=== PATIENT | male | born 1950 | race Two or more races ===

== ENCOUNTER 2017-12-31 10:57 | Inpatient (IN) | payer MEDICARE, MEDICAID ==
[2017-12-31 11:29] LABS: % EOSINOPHILS 1.5 % (0.0-5.0); % LYMPHOCYTES 19.2 % (20.0-50.0); % MONOCYTES 12.6 % (2.0-10.0); % NEUTROPHILS 66.7 % (40.0-80.0); EOSINOPHILE ABSOLUTE 0.1 Th/cmm (0.1-0.4); HEMATOCRIT 41.6 % (41.0-60); HEMOGLOBIN 14.1 gm/dL (12-16); LYMPHOCYTE ABSOLUTE 1.1 Th/cmm (1.5-3.0); MEAN CELL VOLUME 88.9 fl (80-99); MEAN CORPUSCULAR HEMOGLOBIN 30.1 pg (27.0-31.0); MEAN CORPUSCULAR HGB CONC 33.9 pg (28.0-36.0); MEAN PLATELET VOLUME 8.7 fl; MONOCYTE ABSOLUTE 0.7 Th/cmm (0.3-1.0); PLATELET COUNT 185 Th/cmm (150-400); RED BLOOD COUNT 4.68 Mil/cmm (3.80-5.80); RED CELL DISTRIBUTION WIDTH 12.5 % (11.5-20.0); WHITE BLOOD COUNT 5.9 Th/cmm (4.8-10.8)
--- NOTE | 2017-12-31 11:29 | Diagnostic Imaging Report ---
CHEST X-RAY: AP view INDICATION: pain COMPARISON: None FINDINGS: Mild chronic lung changes are noted. There is no focal consolidation or pleural effusions The heart is normal in size. The osseous structures demonstrate no acute abnormalities. IMPRESSION: Mild chronic lung changes. No focal consolidation identified.
--- NOTE | 2017-12-31 11:31 | ED Physician Chart ---
ED Chief Complaint/HPI - Patient Information Date Seen:: 12/31/17 Time Seen:: 11:00 Chief Complaint:: Syncope History of Present Illness:: onset x 2 days of multiple syncope and NS episodes resulting in multiple falls; no report of trauma, H/As, S/T, neck pain, C/P, SOB, cough, abd. pain, A/N/V/D/C , fever, chills, or urinary s/s Allergies:: Allergies Allergy/AdvReac Type Severity Reaction Status Date / Time No Known Allergies Allergy Verified 12/31/17 11:06 Vitals:: Vital Signs - 8 hr 12/31/17 11:06 Temp 97.5 F HR 54 RR 16 BP 97/58 O2 Sat % 99 Historian:: Patient, EMS Review:: Nurse's Note Reviewed, Old Chart Reviewed, EMS run form Reviewed ED Review of Systems - Review of Systems General/Constitutional: No fever, No chills, No weight loss, Weakness, No diaphoresis, No edema, No loss of appetite Skin: No skin lesions, No rash, No bruising Head: No headache, No light-headedness Eyes: No loss of vision, No pain, No diplopia ENT: No earache, No nasal drainage, No sore throat, No tinnitus Neck: No neck pain, No swelling, No thyromegaly, No stiffness, No mass noted Cardio Vascular: No chest pain, No palpitations, No PND, No orthopnea, No edema Pulmonary: No SOB, No cough, No sputum, No wheezing GI: No nausea, No vomiting, No diarrhea, No pain, No melena, No hematochezia, No constipation, No hematemesis G/U: No dysuria, No frequency, No hematuria, No nacturia Musculoskeletal: No bone or joint pain, No back pain, No muscle pain Endocrine: No polyuria, No polydipsia Psychiatric: Prior psych history, No depression, Anxiety, No suicidal ideation, No homicidal ideation, No auditory hallucination, No visual hallucination Hematopoietic: No bruising, No lymphadenopathy Allergic/Immuno: No urticaria, No angioedema Neurological: Syncope, No focal symptoms, Weakness, No paresthesia, No headache , No seizure, Dizziness, Confusion, Vertigo ED Past Medical History - Past Medical History Obtainable: Yes Past Medical History: HTN, Dyslipidemia, Dementia, Other (Parkinson's Disease) Family History: HTN Social History: Non Smoker, No Alcohol, No Drug Use, Surgical History: None Psychiatricy History: Dementia Medication: Reviewed Family Medical History - Family Member Mother History Unknown: Yes ED Physical Exam - Physical Examination General/Constitutional: Awake, Well-developed, well-nourished, Alert, No distress, GCS 15, Non-toxic appearing, Ambulatory Head: Atraumatic Eyes: Lids, conjuctiva normal, PERRL, EOMI Skin: Nl inspection, No rash, No skin lesions, No ecchymosis, Well hydrated, No lymphadenopathy ENMT: External ears, nose nl, TM canals nl, Nasal exam nl, Lips, teeth, gums nl , Oropharynx nl, Tonsils nl Neck: Nontender, Full ROM w/o pain, No JVD, No nuchal rigidity, No bruit, No mass, No stridor Respiratory: Nl effort/Exclusion, Clear to Auscultation, No Wheeze/Rhonchi/Rales Cardio Vascular: RRR, No murmur, gallop, rubs, NL S1 S2, Carotid/Femoral/Distal pulses equal bilaterally GI: No tenderness/rebounding/guarding, No organomegaly, No hernia, Normal BS's, Nondistended, No mass/bruits, No McBurney tenderness : No CVA tenderness Extremities: No tenderness or effusion, Full ROM, normal strength in all extremities, No edema, Normal digits & nails Neuro/Psych: Alert/oriented, DTR's symmetric, Normal sensory exam, Normal motor strength, Judgement/insight normal, Mood normal, Normal gait, No focal deficits Misc: Normal back, No paraspinal tenderness ED Labs/Radiology/EKG Results - Lab Results Comments:: unremarkable - Radiology Results Comments:: NAD - EKG Interpretations EKG Time:: 11:44 Rate & Rhythm: 50; SB Comments:: non-specific st-t changes ED Septic Shock - . Is Septic Shock (SBP<90, OR Lactate>4 mmol\L) present?: No - <6hrs of presentation: Vital Signs: Vital Signs - 8 hr 12/31/17 11:06 Temp 97.5 F HR 54 RR 16 BP 97/58 O2 Sat % 99 ED Reassessment (Disposition) - Reassessment Reassessment Condition:: Improved - Diagnosis Diagnosis:: Hyponatremia; Syncope; Falls; Cardiac Arrythmias; TIA; Bradycardia - Aftercare/Follow up Instructions Aftercare/Follow-Up Instructions:: Counseled pt regarding lab results/diagnosis & need follow up, Counseled pt & family regarding lab results/diagnosis & need follow up - Patient Disposition Discharge/Transfer:: Acute Care w/in this hosp Accepting Physician:: Dr. Cox Time Called:: 1300 Time Responded:: 13:00 Admitted to:: Telemetry Spoke to:: Dr. Cox Admitting Medical Physician:: Dr. Cox Condition at Disposition:: Stable, Improved
[2017-12-31 11:40] LABS: PROTHROMBIN TIME (TEST) 10.4 SECONDS (9.5-11.5)
[2017-12-31 11:44] LABS: ALB/GLOB RATIO 1.2 (1.0-1.8); ALBUMIN 4.1 gm/dL (4.2-5.5); ALKALINE PHOSPHATASE 54 U/L (34-104); ANION GAP 7.1 (7.0-16.0); BILIRUBIN,TOTAL 0.4 mg/dL (0.3-1.0); BUN - UREA NITROGEN 15 mg/dL (7-25); CALCIUM SERUM 9.6 mg/dL (8.6-10.3); CARBON DIOXIDE 28.7 mEq/L (21.0-31.0); CHLORIDE 102 mEq/L (98-107); CHOLESTEROL 102 mg/dL (<200); CREATININE - SERUM 0.9 mg/dL (0.7-1.3); GFR AFRICAN-AMERICAN > 60.0 ml/min (>90); GFR NON AFRICAN-AMERICAN > 60.0 ml/min; GLUCOSE 78 mg/dL (70-105); HDL -HIGH DENSITY LIPOPROTEIN 35 mg/dL (23-92); POTASSIUM SERUM 3.8 mEq/L (3.5-5.1); SGOT 15 U/L (13-39); SGPT/ALT 4 U/L (7-52); SODIUM SERUM 134 mEq/L (136-145); TOTAL PROTEIN,SERUM 7.5 gm/dL (6.0-8.3); TRIGLYCERIDES 68 mg/dL (<150)
--- NOTE | 2017-12-31 12:17 | Diagnostic Imaging Report ---
Head CT without intravenous contrast Indication: Syncope Comparison: None Technique: Axial images were obtained from the vertex to the skull base without IV contrast. Coronal reconstructions were made. Total DLP: 665, CTDI34 FINDINGS: Images of the brain obtained without contrast demonstrate no acute hemorrhage. No mass lesions identified. The ventricles and basal cisterns are patent. The carmona-white matter differentiation is preserved. There is no mass effect or midline shift. Atrophy is noted. No skull fractures identified. No soft tissue swelling. The paranasal sinuses are clear. IMPRESSION: No acute intracranial abnormality. Atrophy.
[2017-12-31] MEDS ORDERED: Sodium Chloride 0.9% 1,000 ML IV SCH (15:00)
[2017-12-31] MEDS: Sodium Chloride 0.9% 1,000 ML IV SCH (16:33)
[2017-12-31 19:33] VITALS: BP 124/64
--- NOTE | 2017-12-31 22:30 | History & Physical ---
ADMIT DATE: 12/31/2017 HISTORY OF PRESENT ILLNESS: This is a patient admitted from the Emergency Room, essentially was having a history of recurrent falls, history of recurrent syncope and the patient reported no shortness of breath, no chest pain, no , was admitted for complete neuro and cardiac evaluation. The patient had no fever, no chills, no headache, no shortness of breath, no bruising. History of hypertension, hyperlipidemia and dementia and history of Parkinson disease. PHYSICAL EXAMINATION: GENERAL: Awake, alert, not in acute distress. VITAL SIGNS: Stable. HEAD: Normal. ENT: Normal. NECK: Supple, nontender. LUNGS: Clear. CARDIOVASCULAR SYSTEM: S1, S2 heard. ABDOMEN: Soft. Bowel sounds are heard. CENTRAL NERVOUS SYSTEM: Grossly normal. LABORATORY DATA: EKG showed no acute ST-T changes and the patient's sodium was low, hyponatremia was noted. DIAGNOSES: Hyponatremia, syncopal episode, cardiac arrhythmia, rule out transient ischemic attack, rule out . PLAN: The patient is being admitted. I will have a neuro as well as cardiac workup done. We will also call Dr. Ruggiero for Neurology and Dr. Zeyad Marte for Cardiology and I will follow the patient. JOB# [id number]
--- NOTE | 2018-01-01 02:29 | Consultation ---
DATE OF CONSULTATION: 12/31/2017 NEUROLOGY [place] HISTORY OF PRESENT ILLNESS: The patient is 67-year-old. The patient is admitted with difficulty with walking. Complains of pain in the legs and weakness in the legs. Difficulty standing. Multiple falls. The patient had diagnosis of [id number] Parkinson. The patient with lot of stiffness. The patient is on Sinemet ____ seems like he is taking 50/200 mg twice a day and then 25/100 mg four times a day. The patient says that he is having more and more difficulty with ambulation. PAST MEDICAL HISTORY: Hypertension, hyperlipidemia, dementia, and Parkinson's. FAMILY HISTORY: Hypertension. MEDICATIONS: As per ____. SOCIAL HISTORY: He does not smoke or drink. REVIEW OF SYSTEMS: As above, otherwise 12-point negative. PHYSICAL EXAMINATION: VITAL SIGNS: Temperature 98.2, blood pressure 105/60, and pulse is 58. NECK: Supple, no bruits. HEART: Sounds S1 and S2. LUNGS: Clear. NEUROLOGIC: The patient is awake. The patient will answer questions. Speech is slightly slow, mildly dysarthric, but I am able to understand it completely. CRANIAL: Pupils react to light. Full eye movement, no nystagmus. The patient has some limitation of movement of the eyes ____ Face is immobile. MOTOR: The patient has tremor resting, more on the right than left. The patient has cogwheel rigidity. Upper extremities, able to lift about 3+ to 4. Lower extremities, increased tone with a combination of rigidity and also some spasticity. Limited movement, difficulty lifting them up. Reflexes about -1 in the upper extremities and essentially absent at the knees and ankles. INVESTIGATIONS: CT scan of the head is negative. ASSESSMENT AND PLAN: 1. Ataxia. 2. Falls. 3. Parkinson. 4. Dementia. 5. Hypertension. 6. Dyslipidemia. 7. We will restart the patient's Parkinson medication. Workup with a possible CT scan or MRI of the cervical spine in view of the falls to make sure no spinal injury. 8. Lab studies. JOB# [id number]
[2018-01-01] MEDS: Hydrocodone/APAP 5mg/325mg Tab PO PRN ×2 (04:50→22:26)
[2018-01-01 06:18] LABS: % BASOPHILS 0.1 % (0.0-2.0); % EOSINOPHILS 1.5 % (0.0-5.0); % LYMPHOCYTES 21.4 % (20.0-50.0); % MONOCYTES 11.7 % (2.0-10.0); % NEUTROPHILS 65.3 % (40.0-80.0); EOSINOPHILE ABSOLUTE 0.1 Th/cmm (0.1-0.4); HEMATOCRIT 41.6 % (41.0-60); HEMOGLOBIN 14.3 gm/dL (12-16); MEAN CELL VOLUME 86.9 fl (80-99); MEAN CORPUSCULAR HEMOGLOBIN 29.9 pg (27.0-31.0); MEAN CORPUSCULAR HGB CONC 34.4 pg (28.0-36.0); MEAN PLATELET VOLUME 8.7 fl; MONOCYTE ABSOLUTE 0.6 Th/cmm (0.3-1.0); NEUTROPHILE ABSOLUTE 3.2 Th/cmm (1.8-8.0); PLATELET COUNT 190 Th/cmm (150-400); RED BLOOD COUNT 4.79 Mil/cmm (3.80-5.80); RED CELL DISTRIBUTION WIDTH 12.7 % (11.5-20.0); WHITE BLOOD COUNT 4.9 Th/cmm (4.8-10.8)
[2018-01-01 06:31] LABS: ANION GAP 9.3 (7.0-16.0); BUN - UREA NITROGEN 16 mg/dL (7-25); CALCIUM SERUM 9.6 mg/dL (8.6-10.3); CHLORIDE 104 mEq/L (98-107); CREATININE - SERUM 0.9 mg/dL (0.7-1.3); GFR AFRICAN-AMERICAN > 60.0 ml/min (>90); GFR NON AFRICAN-AMERICAN > 60.0 ml/min; GLUCOSE 104 mg/dL (70-105); POTASSIUM SERUM 4.3 mEq/L (3.5-5.1); SODIUM SERUM 136 mEq/L (136-145)
[2018-01-01] MEDS ORDERED: Atenolol 100mg Tab PO SCH (09:00)
--- NOTE | 2018-01-01 10:53 | Diagnostic Imaging Report ---
Carotid ultrasound HISTORY: Weakness COMPARISON: None Technique: Longitudinal and transverse sonographic sector images of the carotid arteries were obtained with doppler analysis. FINDINGS: Exam of the right side demonstrates intimal thickening and mild to moderate atherosclerotic vascular disease. No evidence of elevated velocities. Antegrade vertebral artery flow is demonstrated. Exam of the left side demonstrates intimal thickening and mild atherosclerotic vascular disease. No evidence of elevated velocities. Antegrade vertebral artery flow is demonstrated. The velocity ratios are within normal limits. IMPRESSION: Mild to moderate atherosclerotic vascular disease, right greater than left. No evidence of hemodynamically significant stenosis.
[2018-01-01] MEDS: Carbidopa/Levodopa 50/200 mg 1 TER TER PO SCH ×4 (11:40→20:53)
--- NOTE | 2018-01-01 19:01 | Internal Medicine Prog Note ---
Internal Medicine Objective - Results Result Diagrams: 01/01/18 05:45 01/01/18 05:45 Recent Labs: Laboratory Last Values WBC 4.9 Th/cmm (4.8-10.8) 01/01/18 05:45 RBC 4.79 Mil/cmm (3.80-5.80) 01/01/18 05:45 Hgb 14.3 gm/dL (12-16) 01/01/18 05:45 Hct 41.6 % (41.0-60) 01/01/18 05:45 MCV 86.9 fl (80-99) 01/01/18 05:45 MCH 29.9 pg (27.0-31.0) 01/01/18 05:45 MCHC Differential 34.4 pg (28.0-36.0) 01/01/18 05:45 RDW 12.7 % (11.5-20.0) 01/01/18 05:45 Plt Count 190 Th/cmm (150-400) 01/01/18 05:45 MPV 8.7 fl 01/01/18 05:45 Neutrophils % 65.3 % (40.0-80.0) 01/01/18 05:45 Lymphocytes % 21.4 % (20.0-50.0) 01/01/18 05:45 Monocytes % 11.7 % (2.0-10.0) H 01/01/18 05:45 Eosinophils % 1.5 % (0.0-5.0) 01/01/18 05:45 Basophils % 0.1 % (0.0-2.0) 01/01/18 05:45 ESR 20 mm/hr (0-20) 01/01/18 05:45 PT 10.4 SECONDS (9.5-11.5) 12/31/17 11:22 INR 1.00 (0.5-1.4) 12/31/17 11:22 Sodium 136 mEq/L (136-145) 01/01/18 05:45 Potassium 4.3 mEq/L (3.5-5.1) 01/01/18 05:45 Chloride 104 mEq/L (98-107) 01/01/18 05:45 Carbon Dioxide 27.0 mEq/L (21.0-31.0) 01/01/18 05:45 Anion Gap 9.3 (7.0-16.0) 01/01/18 05:45 BUN 16 mg/dL (7-25) 01/01/18 05:45 Creatinine 0.9 mg/dL (0.7-1.3) 01/01/18 05:45 Est GFR ( Amer) > 60.0 ml/min (>90) 01/01/18 05:45 Est GFR (Non-Af Amer) > 60.0 ml/min 01/01/18 05:45 BUN/Creatinine Ratio 17.8 01/01/18 05:45 Glucose 104 mg/dL (70-105) 01/01/18 05:45 Calcium 9.6 mg/dL (8.6-10.3) 01/01/18 05:45 Total Bilirubin 0.4 mg/dL (0.3-1.0) 12/31/17 11:22 AST 15 U/L (13-39) 12/31/17 11:22 ALT 4 U/L (7-52) L 12/31/17 11:22 Alkaline Phosphatase 54 U/L (34-104) 12/31/17 11:22 Creatine Kinase 118 U/L (30-223) 12/31/17 11:22 Troponin I < 0.01 ng/mL (0.01-0.05) L 12/31/17 11:22 C-Reactive Protein < 0.2 mg/dL (0.0-0.9) 01/01/18 05:45 B-Natriuretic Peptide 80.6 pg/mL (5.0-100.0) 12/31/17 11:22 Total Protein 7.5 gm/dL (6.0-8.3) 12/31/17 11:22 Albumin 4.1 gm/dL (4.2-5.5) L 12/31/17 11:22 Globulin 3.4 gm/dL 12/31/17 11:22 Albumin/Globulin Ratio 1.2 (1.0-1.8) 12/31/17 11:22 Triglycerides 68 mg/dL (<150) 12/31/17 11:22 Cholesterol 102 mg/dL (<200) 12/31/17 11:22 LDL Cholesterol Direct 59 mg/dL (75-193) L 12/31/17 11:22 HDL Cholesterol 35 mg/dL (23-92) 12/31/17 11:22 TSH 3.23 uIU/ml (0.34-5.60) 01/01/18 05:45 - Physical Exam Vitals and I&O: Vital Signs Temp 97.9 F 01/01/18 17:00 Pulse 60 01/01/18 17:00 Resp 20 01/01/18 17:00 BP 102/55 01/01/18 17:00 Pulse Ox 99 01/01/18 17:00 Intake & Output 01/01/18 01/01/18 01/02/18 06:59 18:59 06:59 Intake Total 360 600 Balance 360 600 Weight (lbs) 63.412 kg 63.412 kg Intake: Oral 360 600 Other: # Voids 3 2 # Bowel Movements 0 Weight Source Bedscale Bedscale Active Medications: Current Medications Acetaminophen/Hydrocodone Bitart (Mccoll 5mg/325mg) 1 tab PO Q6H PRN PRN Reason: mild to moderate pain Stop: 03/01/18 22:38 Last Admin: 01/01/18 04:50 Dose: 1 tab Alprazolam (Xanax) 0.25 mg PO Q12HR PRN; Protocol PRN Reason: Anxiety Stop: 03/01/18 20:59 Last Admin: 12/31/17 20:30 Dose: 0.25 mg Amlodipine Besylate (Norvasc) 10 mg PO DAILY [facility] Stop: 03/02/18 08:59 Last Admin: 01/01/18 09:37 Dose: Not Given Atenolol (Tenormin) 100 mg PO DAILY [facility] Stop: 03/02/18 08:59 Last Admin: 01/01/18 09:38 Dose: Not Given Carbidopa/Levodopa (Sinemet 25mg-100 Mg) 1 tab PO QID [facility] Stop: 03/01/18 20:59 Last Admin: 01/01/18 16:47 Dose: 1 tab Carbidopa/Levodopa (Sinemet Cr 50mg-200mg) 1 ter PO BID@0730,1930 [facility] Stop: 03/02/18 19:29 Sodium Chloride (Nacl 0.9%) 1,000 mls @ 50 mls/hr IV .Q20H [facility] Stop: 03/01/18 16:14 Last Admin: 12/31/17 16:33 Dose: 50 mls/hr
[2018-01-01] MEDS: Sodium Chloride 0.9% 1,000 ML IV SCH (20:54)
--- NOTE | 2018-01-01 23:39 | Consultation ---
DATE OF CONSULTATION: 01/01/2018 REASON FOR CONSULTATION: Hyponatremia. HISTORY OF PRESENT ILLNESS: This is a 67-year-old male with past medical history of Parkinson disease, who came in because of multiple falls. A few days prior to admission, the patient developed positional dizziness/vertigo, tremors of right upper and lower extremities. This resulted in several episodes of falls. His condition deteriorated with worsening tremors of his right upper and lower extremities. He then proceeded to the Emergency Room. CT scan of the head revealed no acute disease. Carotid artery ultrasound showed no significant hemodynamic stenosis. His sodium level was initially 134. He was started on normal saline and sodium went up to 135. He had no nausea and vomiting, no diarrhea. He was not on any form of diuretic. PAST MEDICAL HISTORY: 1. Parkinson disease. 2. Essential hypertension. 3. Dyslipidemia. CURRENT MEDICATIONS: He is currently on alprazolam, amlodipine, atenolol, carbidopa/levodopa, hydrocodone/APAP. ALLERGIES: No known drug allergies. SOCIAL HISTORY: He denied any history of smoking; however, he did have a history of alcohol consumption, but quit 30 years ago. FAMILY HISTORY: Noncontributory to present illness. REVIEW OF SYSTEMS: CONSTITUTIONAL: He did complain of weakness, especially right side of his body. No fever or chills. Appetite had been fair. HEENT: He did have some dizziness along with vertigo. No headaches. Vision remains acceptable along with hearing acuity. GASTROINTESTINAL: No nausea and vomiting, abdominal pain or cramping, hematemesis, melena, hematochezia, no diarrhea. ENDOCRINE: No history of diabetes or thyroid abnormalities. He does have dyslipidemia. MUSCULOSKELETAL: Multiple joint arthralgias. GENITOURINARY: No history of kidney failure, can check hyponatremia, which is resolved. NEUROPSYCH: He has a history of Parkinson disease. He also has a tendency to have multiple falls. He complained of weakness involving the right side of his body. PHYSICAL EXAMINATION: GENERAL: The patient is awake, verbal at this point, no distress. VITAL SIGNS: His blood pressure is 102/55, pulse 60, temperature 97 degrees. SKIN: Good turgor, warm, no rash, no jaundice appreciated. HEENT: Head normocephalic, atraumatic. Eyes, extraocular muscles intact. Pupils equal, round, reactive to light and accommodates. Anicteric sclerae. Pale conjunctivae. Nose, midline nasal septum. Mouth, moist mucosa, adequate dentition. NECK: Supple, no adenopathy, no thyromegaly, no bruits. Trachea palpated in the midline. CHEST AND CVS: Bradycardic, S1, S2. No rub, murmur, no gallop appreciated. Point of maximal impulse, fifth intercostal space, left midclavicular line. No abdominal or femoral bruits appreciated. LUNGS: Equal expansion. No use of accessory muscles. No supraclavicular retractions. Decreased breath sounds but clear to auscultation without any wheeze. ABDOMEN: Flat, soft. Positive for bowel sounds. No bruits, either diastolic or systolic. RECTAL: Lax sphincter tone. GENITOURINARY: Normal appearing male genitalia. MUSCULOSKELETAL: No effusions present in his joints with adequate range of motion. EXTREMITIES: No evidence of any edema, cyanosis or clubbing with palpable femoral, but unable to fully appreciate popliteal and dorsalis pedis pulses. He has hyperpigmentation involving soles of both feet. NEUROLOGIC: The patient is awake, but due to some language problem, he was unable to follow my neuro commands, so I was unable to pursue further my neuro exam. He does have voluntary movements of all of his extremities without difficulty. LABORATORY DATA: Did reveal white count 4.9, hemoglobin 14.3, hematocrit 41.6, platelets 190, polys 65.3%. Sodium 136, potassium 4.3, chloride 104, bicarbonate 27, BUN 16, creatinine 0.9, glucose 104, calcium 9.6. IMPRESSION: 1. Hyponatremia, which has resolved with IV hydration of normal saline. 2. Multiple falls, possibly from orthostatic hypotension, bradycardia, worsening Parkinson's disease as well as effect of his medications and also benign paroxysmal positional vertigo. 3. Essential hypertension, which is now under good control. 4. Parkinson disease, which has been poorly controlled. 5. Dyslipidemia. PLAN: 1. Continue with IV hydration. 2. Urinalysis. 3. Urine spot sodium. 4. Serum osmolality and uric acid. 5. Discontinue amlodipine and metoprolol due to bradycardia. 6. Monitor blood pressure for orthostasis. Thank you Dr. Cox for this consult. We will follow the patient closely with you. JOB# [id number]
[2018-01-02] MEDS: Carbidopa/Levodopa 50/200 mg 1 TER TER PO SCH ×2 (07:29→20:47)
[2018-01-02] MEDS: Dexamethasone/Tobramycin Ophth Susp 2.5 mL Bottle EACH EYE SCH ×2 (09:21→16:13)
--- NOTE | 2018-01-02 09:23 | Diagnostic Imaging Report ---
CT scan cervical spine HISTORY: Pain Total DLP equals 486 CTDI equals 21.8 Axial sections were obtained through the cervical spine. Additional sagittal and coronal reformatted images are provided. The exam demonstrates degenerative changes with hypertrophic spur formation noted about the endplates of C4, C5, and to a greater degree C6-7. Narrowing of the C6-7 interspace. Spur formation results in a mild extradural indentation on the anterior spinal canal at C6-7. No acute abnormalities. No fractures. The margins of the cervical spinal cord cannot be well visualized. The prevertebral soft tissues appear normal. Atherosclerotic calcification seen in the carotid artery regions. IMPRESSION: 1. No acute abnormalities 2. Degenerative changes most pronounced at C6-7 3. Atherosclerotic vascular changes
[2018-01-02 14:21] LABS: URINE SOURCE MIDSTREAM
[2018-01-02 14:24] LABS: URINE BILIRUBIN NEGATIVE (NEGATIVE); URINE BLOOD NEGATIVE (NEGATIVE); URINE GLUCOSE (UA) NEGATIVE (NEGATIVE); URINE KETONE NEGATIVE (NEGATIVE); URINE LEUKOCYTE ESTERASE NEGATIVE (NEGATIVE); URINE NITRATE NEGATIVE (NEGATIVE); URINE PROTEIN NEGATIVE (NEGATIVE); URINE UROBILINOGEN 0.2 E.U./dL (0.2 - 1.0)
[2018-01-02 14:25] LABS: URINE CLARITY CLEAR (CLEAR); URINE COLOR YELLOW; URINE MICROSCOPIC INDICATED? NO
--- NOTE | 2018-01-02 14:29 | Diagnostic Imaging Report ---
MRI cervical spine HISTORY: Pain Multiple MRI sequences were obtained in the sagittal and axial planes. The C3-4 level demonstrates normal disc contour. No intradural abnormalities are seen. The exam of the C4-5 level demonstrates a moderate (3 mm) extradural density and corresponding indentation on the anterior subarachnoid space. The finding appears primarily related to hypertrophic spur formation. Disc protrusion may also be contributing. Minimal encroachment on the anterior margin of the cervical spinal cord. Hypertrophic degenerative bony changes result in neural foraminal encroachment on the left side. The C5-6 level demonstrates degenerative changes with spur formation about the vertebral endplates. There is a moderate (3 mm) extradural density and a corresponding indentation on the anterior subarachnoid space. The findings appear primarily related to spur formation. Disc protrusion may also be contributing. The C6-7 level demonstrates slight narrowing of the disc and interspace. Degenerative spur formation seen about the vertebral endplates. There is a moderate to large (4 to 5 mm) extradural density and corresponding indentation on the anterior subarachnoid space. The finding appears primarily related to hypertrophic spur formation. Disc protrusion also appears to be contributing. Bony changes result in bilateral neural foraminal encroachment. No intramedullary abnormality seen within the cervical spinal cord. The cerebellar tonsils are in a normal position. Bone marrow exhibits normal signal intensity with no focal lesions. IMPRESSION: 1. Multilevel extradural densities and indentations as described above. The findings appear primarily related to hypertrophic degenerative spur formation. Mild disc protrusions may also be contributing. Correlation with plain radiographs recommended.
--- NOTE | 2018-01-02 14:43 | General Progress Note ---
Subjective - Review of Systems Service Date: 01/02/18 Subjective: still w/ ataxia Objective - Results Result Diagrams: 01/01/18 05:45 01/01/18 05:45 Recent Labs: Laboratory Last Values WBC 4.9 Th/cmm (4.8-10.8) 01/01/18 05:45 RBC 4.79 Mil/cmm (3.80-5.80) 01/01/18 05:45 Hgb 14.3 gm/dL (12-16) 01/01/18 05:45 Hct 41.6 % (41.0-60) 01/01/18 05:45 MCV 86.9 fl (80-99) 01/01/18 05:45 MCH 29.9 pg (27.0-31.0) 01/01/18 05:45 MCHC Differential 34.4 pg (28.0-36.0) 01/01/18 05:45 RDW 12.7 % (11.5-20.0) 01/01/18 05:45 Plt Count 190 Th/cmm (150-400) 01/01/18 05:45 MPV 8.7 fl 01/01/18 05:45 Neutrophils % 65.3 % (40.0-80.0) 01/01/18 05:45 Lymphocytes % 21.4 % (20.0-50.0) 01/01/18 05:45 Monocytes % 11.7 % (2.0-10.0) H 01/01/18 05:45 Eosinophils % 1.5 % (0.0-5.0) 01/01/18 05:45 Basophils % 0.1 % (0.0-2.0) 01/01/18 05:45 ESR 20 mm/hr (0-20) 01/01/18 05:45 PT 10.4 SECONDS (9.5-11.5) 12/31/17 11:22 INR 1.00 (0.5-1.4) 12/31/17 11:22 Sodium 136 mEq/L (136-145) 01/01/18 05:45 Potassium 4.3 mEq/L (3.5-5.1) 01/01/18 05:45 Chloride 104 mEq/L (98-107) 01/01/18 05:45 Carbon Dioxide 27.0 mEq/L (21.0-31.0) 01/01/18 05:45 Anion Gap 9.3 (7.0-16.0) 01/01/18 05:45 BUN 16 mg/dL (7-25) 01/01/18 05:45 Creatinine 0.9 mg/dL (0.7-1.3) 01/01/18 05:45 Est GFR ( Amer) > 60.0 ml/min (>90) 01/01/18 05:45 Est GFR (Non-Af Amer) > 60.0 ml/min 01/01/18 05:45 BUN/Creatinine Ratio 17.8 01/01/18 05:45 Glucose 104 mg/dL (70-105) 01/01/18 05:45 Uric Acid 3.0 mg/dL (4.4-7.6) L 01/02/18 08:08 Calcium 9.6 mg/dL (8.6-10.3) 01/01/18 05:45 Total Bilirubin 0.4 mg/dL (0.3-1.0) 12/31/17 11:22 AST 15 U/L (13-39) 12/31/17 11:22 ALT 4 U/L (7-52) L 12/31/17 11:22 Alkaline Phosphatase 54 U/L (34-104) 12/31/17 11:22 Creatine Kinase 118 U/L (30-223) 12/31/17 11:22 Troponin I < 0.01 ng/mL (0.01-0.05) L 12/31/17 11:22 C-Reactive Protein < 0.2 mg/dL (0.0-0.9) 01/01/18 05:45 B-Natriuretic Peptide 80.6 pg/mL (5.0-100.0) 12/31/17 11:22 Total Protein 7.5 gm/dL (6.0-8.3) 12/31/17 11:22 Albumin 4.1 gm/dL (4.2-5.5) L 12/31/17 11:22 Globulin 3.4 gm/dL 12/31/17 11:22 Albumin/Globulin Ratio 1.2 (1.0-1.8) 12/31/17 11:22 Triglycerides 68 mg/dL (<150) 12/31/17 11:22 Cholesterol 102 mg/dL (<200) 12/31/17 11:22 LDL Cholesterol Direct 59 mg/dL (75-193) L 12/31/17 11:22 HDL Cholesterol 35 mg/dL (23-92) 12/31/17 11:22 TSH 3.23 uIU/ml (0.34-5.60) 01/01/18 05:45 Urine Color YELLOW 01/02/18 14:15 Urine Clarity CLEAR (CLEAR) 01/02/18 14:15 Urine pH 6.0 (4.6 - 8.0) 01/02/18 14:15 Ur Specific [place] 1.025 (1.005-1.030) 01/02/18 14:15 Urine Protein NEGATIVE mg/dL (NEGATIVE) 01/02/18 14:15 Urine Glucose (UA) NEGATIVE mg/dL (NEGATIVE) 01/02/18 14:15 Urine Ketones NEGATIVE mg/dL (NEGATIVE) 01/02/18 14:15 Urine Blood NEGATIVE (NEGATIVE) 01/02/18 14:15 Urine Nitrate NEGATIVE (NEGATIVE) 01/02/18 14:15 Urine Bilirubin NEGATIVE (NEGATIVE) 01/02/18 14:15 Urine Urobilinogen 0.2 E.U./dL (0.2 - 1.0) 01/02/18 14:15 Ur Leukocyte Esterase NEGATIVE (NEGATIVE) 01/02/18 14:15 - Physical Exam Vitals and I&O: Vital Signs Temp 97.5 F 01/02/18 11:59 Pulse 67 01/02/18 11:59 Resp 20 01/02/18 11:59 BP 118/66 01/02/18 11:59 Pulse Ox 99 01/02/18 11:59 Intake & Output 01/01/18 01/02/18 01/02/18 18:59 06:59 18:59 Intake Total 1600 Output Total 250 Balance 1600 -250 Weight (lbs) 63.412 kg 63.049 kg Intake: Intake, IV Amount 1000 Sodium Chloride 0.9% 1, 1000 000 ml @ 50 mls/hr IV . Q20H [facility] Rx#:[id number] Oral 600 Output: Urine 250 Other: # Voids 2 # Bowel Movements 0 Weight Source Bedscale Estimated Active Medications: Current Medications Acetaminophen/Hydrocodone Bitart ([place] 5mg/325mg) 1 tab PO Q6H PRN PRN Reason: mild to moderate pain Stop: 03/01/18 22:38 Last Admin: 01/01/18 22:26 Dose: 1 tab Alprazolam (Xanax) 0.25 mg PO Q12HR PRN; Protocol PRN Reason: Anxiety Stop: 03/01/18 20:59 Last Admin: 01/01/18 20:53 Dose: 0.25 mg Carbidopa/Levodopa (Sinemet 25mg-100 Mg) 1 tab PO QID [facility] Stop: 03/01/18 20:59 Last Admin: 01/02/18 14:20 Dose: 1 tab Carbidopa/Levodopa (Sinemet Cr 50mg-200mg) 1 ter PO BID@0730,1930 [facility] Stop: 03/02/18 19:29 Last Admin: 01/02/18 07:29 Dose: 1 ter Sodium Chloride (Nacl 0.9%) 1,000 mls @ 50 mls/hr IV .Q20H [facility] Stop: 03/01/18 16:14 Last Admin: 01/01/18 20:54 Dose: 50 mls/hr Tobramycin/Dexamethasone (Tobradex 0.1%-0.3% Ophth Susp 2.5ml) 2 drop EACH EYE BID [facility] Stop: 03/03/18 08:59 Last Admin: 01/02/18 09:21 Dose: 2 drop General: Alert, No acute distress HEENT: Atraumatic, PERRLA, EOMI, Mucous membr. moist/pink Neck: Supple, +2 carotid pulse wo bruit Cardiovascular: Regular rate, Normal S1, Normal S2 Lungs: Clear to auscultation Abdomen: Bowel sounds, Soft Extremities: no Edema Neurological: Sensation intact Skin: no Rash Psych/Mental Status: Mood NL Assessment/Plan - Assessment Assessment: Hyponatremia resolved Multiple falls 2/2 Parkinson, orthostatic hypotension, bradycardia, med induced Ess Htn Parkinson Ds Dyslipidemia - Plan Plan: Lab - Result Diagrams 01/01/18 05:45 01/01/18 05:45 Current Medications Acetaminophen/Hydrocodone Bitart ([place] 5mg/325mg) 1 tab PO Q6H PRN PRN Reason: mild to moderate pain Stop: 03/01/18 22:38 Last Admin: 01/01/18 22:26 Dose: 1 tab Alprazolam (Xanax) 0.25 mg PO Q12HR PRN; Protocol PRN Reason: Anxiety Stop: 03/01/18 20:59 Last Admin: 01/01/18 20:53 Dose: 0.25 mg Carbidopa/Levodopa (Sinemet 25mg-100 Mg) 1 tab PO QID [facility] Stop: 03/01/18 20:59 Last Admin: 01/02/18 14:20 Dose: 1 tab Carbidopa/Levodopa (Sinemet Cr 50mg-200mg) 1 ter PO BID@0730,1930 [facility] Stop: 03/02/18 19:29 Last Admin: 01/02/18 07:29 Dose: 1 ter Sodium Chloride (Nacl 0.9%) 1,000 mls @ 50 mls/hr IV .Q20H [facility] Stop: 03/01/18 16:14 Last Admin: 01/01/18 20:54 Dose: 50 mls/hr Tobramycin/Dexamethasone (Tobradex 0.1%-0.3% Ophth Susp 2.5ml) 2 drop EACH EYE BID [facility] Stop: 03/03/18 08:59 Last Admin: 01/02/18 09:21 Dose: 2 drop Na stable BP & HR better continue PT Cervical Spine CT: [facility] MRI: extradural densities/indentations w/ deg spur formation
[2018-01-02] MEDS: Hydrocodone/APAP 5mg/325mg Tab PO PRN (21:44)
--- NOTE | 2018-01-02 22:27 | Internal Medicine Prog Note ---
Internal Medicine Objective - Results Result Diagrams: 01/01/18 05:45 01/01/18 05:45 Recent Labs: Laboratory Last Values WBC 4.9 Th/cmm (4.8-10.8) 01/01/18 05:45 RBC 4.79 Mil/cmm (3.80-5.80) 01/01/18 05:45 Hgb 14.3 gm/dL (12-16) 01/01/18 05:45 Hct 41.6 % (41.0-60) 01/01/18 05:45 MCV 86.9 fl (80-99) 01/01/18 05:45 MCH 29.9 pg (27.0-31.0) 01/01/18 05:45 MCHC Differential 34.4 pg (28.0-36.0) 01/01/18 05:45 RDW 12.7 % (11.5-20.0) 01/01/18 05:45 Plt Count 190 Th/cmm (150-400) 01/01/18 05:45 MPV 8.7 fl 01/01/18 05:45 Neutrophils % 65.3 % (40.0-80.0) 01/01/18 05:45 Lymphocytes % 21.4 % (20.0-50.0) 01/01/18 05:45 Monocytes % 11.7 % (2.0-10.0) H 01/01/18 05:45 Eosinophils % 1.5 % (0.0-5.0) 01/01/18 05:45 Basophils % 0.1 % (0.0-2.0) 01/01/18 05:45 ESR 20 mm/hr (0-20) 01/01/18 05:45 PT 10.4 SECONDS (9.5-11.5) 12/31/17 11:22 INR 1.00 (0.5-1.4) 12/31/17 11:22 Sodium 136 mEq/L (136-145) 01/01/18 05:45 Potassium 4.3 mEq/L (3.5-5.1) 01/01/18 05:45 Chloride 104 mEq/L (98-107) 01/01/18 05:45 Carbon Dioxide 27.0 mEq/L (21.0-31.0) 01/01/18 05:45 Anion Gap 9.3 (7.0-16.0) 01/01/18 05:45 BUN 16 mg/dL (7-25) 01/01/18 05:45 Creatinine 0.9 mg/dL (0.7-1.3) 01/01/18 05:45 Est GFR ( Amer) > 60.0 ml/min (>90) 01/01/18 05:45 Est GFR (Non-Af Amer) > 60.0 ml/min 01/01/18 05:45 BUN/Creatinine Ratio 17.8 01/01/18 05:45 Glucose 104 mg/dL (70-105) 01/01/18 05:45 Uric Acid 3.0 mg/dL (4.4-7.6) L 01/02/18 08:08 Calcium 9.6 mg/dL (8.6-10.3) 01/01/18 05:45 Total Bilirubin 0.4 mg/dL (0.3-1.0) 12/31/17 11:22 AST 15 U/L (13-39) 12/31/17 11:22 ALT 4 U/L (7-52) L 12/31/17 11:22 Alkaline Phosphatase 54 U/L (34-104) 12/31/17 11:22 Creatine Kinase 118 U/L (30-223) 12/31/17 11:22 Troponin I < 0.01 ng/mL (0.01-0.05) L 12/31/17 11:22 C-Reactive Protein < 0.2 mg/dL (0.0-0.9) 01/01/18 05:45 B-Natriuretic Peptide 80.6 pg/mL (5.0-100.0) 12/31/17 11:22 Total Protein 7.5 gm/dL (6.0-8.3) 12/31/17 11:22 Albumin 4.1 gm/dL (4.2-5.5) L 12/31/17 11:22 Globulin 3.4 gm/dL 12/31/17 11:22 Albumin/Globulin Ratio 1.2 (1.0-1.8) 12/31/17 11:22 Triglycerides 68 mg/dL (<150) 12/31/17 11:22 Cholesterol 102 mg/dL (<200) 12/31/17 11:22 LDL Cholesterol Direct 59 mg/dL (75-193) L 12/31/17 11:22 HDL Cholesterol 35 mg/dL (23-92) 12/31/17 11:22 TSH 3.23 uIU/ml (0.34-5.60) 01/01/18 05:45 Urine Source MIDSTREAM 01/02/18 14:15 Urine Color YELLOW 01/02/18 14:15 Urine Clarity CLEAR (CLEAR) 01/02/18 14:15 Urine pH 6.0 (4.6 - 8.0) 01/02/18 14:15 Ur Specific [place] 1.025 (1.005-1.030) 01/02/18 14:15 Urine Protein NEGATIVE mg/dL (NEGATIVE) 01/02/18 14:15 Urine Glucose (UA) NEGATIVE mg/dL (NEGATIVE) 01/02/18 14:15 Urine Ketones NEGATIVE mg/dL (NEGATIVE) 01/02/18 14:15 Urine Blood NEGATIVE (NEGATIVE) 01/02/18 14:15 Urine Nitrate NEGATIVE (NEGATIVE) 01/02/18 14:15 Urine Bilirubin NEGATIVE (NEGATIVE) 01/02/18 14:15 Urine Urobilinogen 0.2 E.U./dL (0.2 - 1.0) 01/02/18 14:15 Ur Leukocyte Esterase NEGATIVE (NEGATIVE) 01/02/18 14:15 Ur Random Sodium 176 mmol/L 01/02/18 14:15 - Physical Exam Vitals and I&O: Vital Signs Temp 98.2 F 01/02/18 19:59 Pulse 67 01/02/18 19:59 Resp 19 01/02/18 19:59 BP 97/58 01/02/18 19:59 Pulse Ox 97 01/02/18 19:59 Intake & Output 01/02/18 01/02/18 01/03/18 06:59 18:59 06:59 Intake Total 600 Output Total 250 Balance -250 600 Weight (lbs) 63.049 kg 63.049 kg Intake: Oral 600 Output: Urine 250 Other: # Voids 2 # Bowel Movements 0 Weight Source Estimated Bedscale Active Medications: Current Medications Acetaminophen/Hydrocodone Bitart ([place] 5mg/325mg) 1 tab PO Q6H PRN PRN Reason: mild to moderate pain Stop: 03/01/18 22:38 Last Admin: 01/02/18 21:44 Dose: 1 tab Alprazolam (Xanax) 0.25 mg PO Q12HR PRN; Protocol PRN Reason: Anxiety Stop: 03/01/18 20:59 Last Admin: 01/02/18 16:18 Dose: 0.25 mg Carbidopa/Levodopa (Sinemet 25mg-100 Mg) 1 tab PO QID [facility] Stop: 03/01/18 20:59 Last Admin: 01/02/18 20:47 Dose: 1 tab Carbidopa/Levodopa (Sinemet Cr 50mg-200mg) 1 ter PO BID@0730,1930 [facility] Stop: 03/02/18 19:29 Last Admin: 01/02/18 20:47 Dose: 1 ter Sodium Chloride (Nacl 0.9%) 1,000 mls @ 50 mls/hr IV .Q20H [facility] Stop: 03/01/18 16:14 Last Admin: 01/01/18 20:54 Dose: 50 mls/hr Tobramycin/Dexamethasone (Tobradex 0.1%-0.3% Ophth Susp 2.5ml) 2 drop EACH EYE BID [facility] Stop: 03/03/18 08:59 Last Admin: 01/02/18 16:13 Dose: 2 drop
--- NOTE | 2018-01-03 04:45 | Consultation ---
DATE OF CONSULTATION: 01/02/[address] Cox. HISTORY AND PHYSICAL: This 67-year-old male patient who has been complaining of unsteady gait, frequent falls secondary to shaking of the right upper and lower extremity, which has gradually increased. PAST MEDICAL HISTORY: The patient has a history of unsteady gait, history of tremors, hypertension, hyperlipidemia, mild carotid stenosis. FAMILY HISTORY: Unremarkable. SOCIAL HISTORY: No history of smoking, alcohol abuse. ALLERGIES: No known allergies. PHYSICAL EXAMINATION: VITAL SIGNS: Blood pressure 110/70, pulse 60, respirations 20. HEAD: Normocephalic. No lumps or bumps. EYES: Pupils equal, reactive to light. Fundi show AV nicking, sclerae white, conjunctivae pink. NECK: Carotid 2+. Normal upstroke. JVD flat. Thyroid not palpable. Lymph nodes not palpable. CHEST: Shows increased AP diameter. No kyphosis, scoliosis. LUNGS: Bilateral bronchovesicular breath sounds. HEART: PMI, fifth intercostal space with lateral to midclavicular line. S1, S2, S3, S4, soft systolic murmur. ABDOMEN: Soft. Liver, spleen not palpable. No organomegaly. Bowel sounds active. NEUROLOGIC: The patient has tremors consistent with Parkinson's disease resulting unsteady gait. CLINICAL IMPRESSION: Syncopal ____ episode, frequent falls secondary to Parkinson disease, unsteady gait, hypertension, hyperlipidemia, mild carotid stenosis, more on the right than the left. PLAN: We will get echocardiogram and have Neurology evaluation. [facility]# [id number]
[2018-01-03] MEDS: Sodium Chloride 0.9% 1,000 ML IV SCH (05:48)
[2018-01-03] MEDS: Carbidopa/Levodopa 50/200 mg 1 TER TER PO SCH ×2 (06:48→18:30)
[2018-01-03] MEDS: Dexamethasone/Tobramycin Ophth Susp 2.5 mL Bottle EACH EYE SCH ×2 (08:39→16:03)
--- NOTE | 2018-01-03 12:57 | Progress Notes ---
DATE: 01/03/2018 SUBJECTIVE: The patient was seen in his room, lying in the bed. The patient is more awake and alert, but complains of weakness. Otherwise, the patient appears to be in no acute distress. OBJECTIVE: VITAL SIGNS: Temperature 97.6, heart rate 62, blood pressure 114/67, respirations 20, 98% on room air. HEENT: Head is atraumatic and normocephalic. Eyes, bilateral conjunctivae are clear. Bilateral pupils are equally round and reactive. NECK: Supple. No JVD. CARDIOVASCULAR: S1 and S2 without murmur. PULMONARY: Clear to auscultation. GASTROINTESTINAL: Soft and nontender without guarding. Positive bowel sounds. MUSCULOSKELETAL: No clubbing, no cyanosis noted. ASSESSMENT: 1. Parkinson's disease. 2. Syncopal episode. 3. Hypertension. 4. Hyperlipidemia. PLAN: The patient was already cleared by neurologist. We are just pending for Cardiology clearance. The patient is still to undergo echocardiogram. Otherwise, we will keep the patient inpatient. Treatment plans were discussed with the patient's nurse. Treatment plans were discussed with Dr. Cox. JOB# [id number]
--- NOTE | 2018-01-03 14:10 | General Progress Note ---
Subjective - Review of Systems Service Date: 01/03/18 Subjective: still w/ ataxia Objective - Results Result Diagrams: 01/01/18 05:45 01/01/18 05:45 Recent Labs: Laboratory Last Values WBC 4.9 Th/cmm (4.8-10.8) 01/01/18 05:45 RBC 4.79 Mil/cmm (3.80-5.80) 01/01/18 05:45 Hgb 14.3 gm/dL (12-16) 01/01/18 05:45 Hct 41.6 % (41.0-60) 01/01/18 05:45 MCV 86.9 fl (80-99) 01/01/18 05:45 MCH 29.9 pg (27.0-31.0) 01/01/18 05:45 MCHC Differential 34.4 pg (28.0-36.0) 01/01/18 05:45 RDW 12.7 % (11.5-20.0) 01/01/18 05:45 Plt Count 190 Th/cmm (150-400) 01/01/18 05:45 MPV 8.7 fl 01/01/18 05:45 Neutrophils % 65.3 % (40.0-80.0) 01/01/18 05:45 Lymphocytes % 21.4 % (20.0-50.0) 01/01/18 05:45 Monocytes % 11.7 % (2.0-10.0) H 01/01/18 05:45 Eosinophils % 1.5 % (0.0-5.0) 01/01/18 05:45 Basophils % 0.1 % (0.0-2.0) 01/01/18 05:45 ESR 20 mm/hr (0-20) 01/01/18 05:45 PT 10.4 SECONDS (9.5-11.5) 12/31/17 11:22 INR 1.00 (0.5-1.4) 12/31/17 11:22 Sodium 136 mEq/L (136-145) 01/01/18 05:45 Potassium 4.3 mEq/L (3.5-5.1) 01/01/18 05:45 Chloride 104 mEq/L (98-107) 01/01/18 05:45 Carbon Dioxide 27.0 mEq/L (21.0-31.0) 01/01/18 05:45 Anion Gap 9.3 (7.0-16.0) 01/01/18 05:45 BUN 16 mg/dL (7-25) 01/01/18 05:45 Creatinine 0.9 mg/dL (0.7-1.3) 01/01/18 05:45 Est GFR ( Amer) > 60.0 ml/min (>90) 01/01/18 05:45 Est GFR (Non-Af Amer) > 60.0 ml/min 01/01/18 05:45 BUN/Creatinine Ratio 17.8 01/01/18 05:45 Glucose 104 mg/dL (70-105) 01/01/18 05:45 Uric Acid 3.0 mg/dL (4.4-7.6) L 01/02/18 08:08 Calcium 9.6 mg/dL (8.6-10.3) 01/01/18 05:45 Total Bilirubin 0.4 mg/dL (0.3-1.0) 12/31/17 11:22 AST 15 U/L (13-39) 12/31/17 11:22 ALT 4 U/L (7-52) L 12/31/17 11:22 Alkaline Phosphatase 54 U/L (34-104) 12/31/17 11:22 Creatine Kinase 118 U/L (30-223) 12/31/17 11:22 Troponin I < 0.01 ng/mL (0.01-0.05) L 12/31/17 11:22 C-Reactive Protein < 0.2 mg/dL (0.0-0.9) 01/01/18 05:45 B-Natriuretic Peptide 80.6 pg/mL (5.0-100.0) 12/31/17 11:22 Total Protein 7.5 gm/dL (6.0-8.3) 12/31/17 11:22 Albumin 4.1 gm/dL (4.2-5.5) L 12/31/17 11:22 Globulin 3.4 gm/dL 12/31/17 11:22 Albumin/Globulin Ratio 1.2 (1.0-1.8) 12/31/17 11:22 Triglycerides 68 mg/dL (<150) 12/31/17 11:22 Cholesterol 102 mg/dL (<200) 12/31/17 11:22 LDL Cholesterol Direct 59 mg/dL (75-193) L 12/31/17 11:22 HDL Cholesterol 35 mg/dL (23-92) 12/31/17 11:22 TSH 3.23 uIU/ml (0.34-5.60) 01/01/18 05:45 Urine Source MIDSTREAM 01/02/18 14:15 Urine Color YELLOW 01/02/18 14:15 Urine Clarity CLEAR (CLEAR) 01/02/18 14:15 Urine pH 6.0 (4.6 - 8.0) 01/02/18 14:15 Ur Specific [place] 1.025 (1.005-1.030) 01/02/18 14:15 Urine Protein NEGATIVE mg/dL (NEGATIVE) 01/02/18 14:15 Urine Glucose (UA) NEGATIVE mg/dL (NEGATIVE) 01/02/18 14:15 Urine Ketones NEGATIVE mg/dL (NEGATIVE) 01/02/18 14:15 Urine Blood NEGATIVE (NEGATIVE) 01/02/18 14:15 Urine Nitrate NEGATIVE (NEGATIVE) 01/02/18 14:15 Urine Bilirubin NEGATIVE (NEGATIVE) 01/02/18 14:15 Urine Urobilinogen 0.2 E.U./dL (0.2 - 1.0) 01/02/18 14:15 Ur Leukocyte Esterase NEGATIVE (NEGATIVE) 01/02/18 14:15 Ur Random Sodium 176 mmol/L 01/02/18 14:15 - Physical Exam Vitals and I&O: Vital Signs Temp 97.7 F 01/03/18 11:00 Pulse 67 01/03/18 11:00 Resp 20 01/03/18 11:11 BP 126/69 01/03/18 11:00 Pulse Ox 97 01/03/18 11:00 Intake & Output 01/02/18 01/03/18 01/03/18 18:59 06:59 18:59 Intake Total 1600 150 Balance 1600 150 Weight (lbs) 63.049 kg 61.235 kg Intake: Intake, IV Amount 1000 Sodium Chloride 0.9% 1, 1000 000 ml @ 50 mls/hr IV . Q20H [facility] Rx#:[id number] Oral 600 150 Other: # Voids 2 1 # Bowel Movements 0 Weight Source Bedscale Bedscale Active Medications: Current Medications Acetaminophen/Hydrocodone Bitart ([place] 5mg/325mg) 1 tab PO Q6H PRN PRN Reason: mild to moderate pain Stop: 03/01/18 22:38 Last Admin: 01/02/18 21:44 Dose: 1 tab Alprazolam (Xanax) 0.25 mg PO Q12HR PRN; Protocol PRN Reason: Anxiety Stop: 03/01/18 20:59 Last Admin: 01/02/18 16:18 Dose: 0.25 mg Carbidopa/Levodopa (Sinemet 25mg-100 Mg) 1 tab PO QID [facility] Stop: 03/01/18 20:59 Last Admin: 01/03/18 12:06 Dose: 1 tab Carbidopa/Levodopa (Sinemet Cr 50mg-200mg) 1 ter PO BID@0730,1930 [facility] Stop: 03/02/18 19:29 Last Admin: 01/03/18 06:48 Dose: 1 ter Sodium Chloride (Nacl 0.9%) 1,000 mls @ 50 mls/hr IV .Q20H [facility] Stop: 03/01/18 16:14 Last Admin: 01/03/18 05:48 Dose: 50 mls/hr Tobramycin/Dexamethasone (Tobradex 0.1%-0.3% Ophth Susp 2.5ml) 2 drop EACH EYE BID [facility] Stop: 03/03/18 08:59 Last Admin: 01/03/18 08:39 Dose: 2 drop General: Alert, No acute distress HEENT: Atraumatic, PERRLA, EOMI, Mucous membr. moist/pink Neck: Supple, +2 carotid pulse wo bruit Cardiovascular: Regular rate, Normal S1, Normal S2 Lungs: Clear to auscultation Abdomen: Bowel sounds, Soft Extremities: no Edema Neurological: Sensation intact Skin: no Rash Psych/Mental Status: Mood NL Assessment/Plan - Assessment Assessment: Hyponatremia resolved Multiple falls 2/2 Parkinson, orthostatic hypotension, bradycardia, med induced Ess Htn Parkinson Ds Dyslipidemia - Plan Plan: Lab - Result Diagrams 01/01/18 05:45 01/01/18 05:45 Current Medications Acetaminophen/Hydrocodone Bitart ([place] 5mg/325mg) 1 tab PO Q6H PRN PRN Reason: mild to moderate pain Stop: 03/01/18 22:38 Last Admin: 01/01/18 22:26 Dose: 1 tab Alprazolam (Xanax) 0.25 mg PO Q12HR PRN; Protocol PRN Reason: Anxiety Stop: 03/01/18 20:59 Last Admin: 01/01/18 20:53 Dose: 0.25 mg Carbidopa/Levodopa (Sinemet 25mg-100 Mg) 1 tab PO QID [facility] Stop: 03/01/18 20:59 Last Admin: 01/02/18 14:20 Dose: 1 tab Carbidopa/Levodopa (Sinemet Cr 50mg-200mg) 1 ter PO BID@0730,1930 [facility] Stop: 03/02/18 19:29 Last Admin: 01/02/18 07:29 Dose: 1 ter Sodium Chloride (Nacl 0.9%) 1,000 mls @ 50 mls/hr IV .Q20H [facility] Stop: 03/01/18 16:14 Last Admin: 01/01/18 20:54 Dose: 50 mls/hr Tobramycin/Dexamethasone (Tobradex 0.1%-0.3% Ophth Susp 2.5ml) 2 drop EACH EYE BID [facility] Stop: 03/03/18 08:59 Last Admin: 01/02/18 09:21 Dose: 2 drop Lab - Result Diagrams 01/01/18 05:45 01/01/18 05:45 Na stable BP & HR better continue PT Cervical Spine CT: DJD MRI: extradural densities/indentations w/ deg spur formation
--- NOTE | 2018-01-03 17:04 | Cardiology ---
01/03/[address] Cox. M-MODE ECHOCARDIOGRAM: Mitral valve, anterior leaflet of mitral valve shows normal excursion, EF velocity. Posterior leaflet of mitral valve shows normal excursion. Left ventricle posterior shows increased thickness, normal excursion. Interventricular septum shows increased thickness, normal excursion, hypertrophy of the left ventricle, ejection fraction 60%. Left atrium normal. Aortic root shows normal dimension, normal excursion of aortic leaflets. CONCLUSION: Hypertrophy of the left ventricle, ejection fraction 60%. 2D ECHO: Long axis view showed normal-sized left ventricle with hypertrophy of the left ventricle. Left atrium normal. Aortic root shows normal dimension, normal excursion of aortic leaflets. Short axis view of mitral valve normal. Short axis view of aortic valve normal. Apical four chamber view showed normal-sized left ventricle with hypertrophy of the left ventricle. Left atrium normal. Right ventricular cavity, right atrium normal, no pericardial effusion. CONCLUSION: Hypertrophy of the left ventricle, ejection fraction 60%. Doppler study shows mild mitral regurgitation, mild tricuspid regurgitation, right ventricular systolic pressure 34 mmHg. JOB# [id number]
[2018-01-04] MEDS: Sodium Chloride 0.9% 1,000 ML IV SCH ×2 (02:13→21:51)
[2018-01-04] MEDS: Carbidopa/Levodopa 50/200 mg 1 TER TER PO SCH ×2 (06:39→19:47)
--- NOTE | 2018-01-04 07:04 | General Progress Note ---
Subjective - Review of Systems Events since last encounter: patient awake in no acute distress Objective - Results Result Diagrams: 01/01/18 05:45 01/01/18 05:45 Recent Labs: Laboratory Last Values WBC 4.9 Th/cmm (4.8-10.8) 01/01/18 05:45 RBC 4.79 Mil/cmm (3.80-5.80) 01/01/18 05:45 Hgb 14.3 gm/dL (12-16) 01/01/18 05:45 Hct 41.6 % (41.0-60) 01/01/18 05:45 MCV 86.9 fl (80-99) 01/01/18 05:45 MCH 29.9 pg (27.0-31.0) 01/01/18 05:45 MCHC Differential 34.4 pg (28.0-36.0) 01/01/18 05:45 RDW 12.7 % (11.5-20.0) 01/01/18 05:45 Plt Count 190 Th/cmm (150-400) 01/01/18 05:45 MPV 8.7 fl 01/01/18 05:45 Neutrophils % 65.3 % (40.0-80.0) 01/01/18 05:45 Lymphocytes % 21.4 % (20.0-50.0) 01/01/18 05:45 Monocytes % 11.7 % (2.0-10.0) H 01/01/18 05:45 Eosinophils % 1.5 % (0.0-5.0) 01/01/18 05:45 Basophils % 0.1 % (0.0-2.0) 01/01/18 05:45 ESR 20 mm/hr (0-20) 01/01/18 05:45 PT 10.4 SECONDS (9.5-11.5) 12/31/17 11:22 INR 1.00 (0.5-1.4) 12/31/17 11:22 Sodium 136 mEq/L (136-145) 01/01/18 05:45 Potassium 4.3 mEq/L (3.5-5.1) 01/01/18 05:45 Chloride 104 mEq/L (98-107) 01/01/18 05:45 Carbon Dioxide 27.0 mEq/L (21.0-31.0) 01/01/18 05:45 Anion Gap 9.3 (7.0-16.0) 01/01/18 05:45 BUN 16 mg/dL (7-25) 01/01/18 05:45 Creatinine 0.9 mg/dL (0.7-1.3) 01/01/18 05:45 Est GFR ( Amer) > 60.0 ml/min (>90) 01/01/18 05:45 Est GFR (Non-Af Amer) > 60.0 ml/min 01/01/18 05:45 BUN/Creatinine Ratio 17.8 01/01/18 05:45 Glucose 104 mg/dL (70-105) 01/01/18 05:45 Uric Acid 3.0 mg/dL (4.4-7.6) L 01/02/18 08:08 Calcium 9.6 mg/dL (8.6-10.3) 01/01/18 05:45 Total Bilirubin 0.4 mg/dL (0.3-1.0) 12/31/17 11:22 AST 15 U/L (13-39) 12/31/17 11:22 ALT 4 U/L (7-52) L 12/31/17 11:22 Alkaline Phosphatase 54 U/L (34-104) 12/31/17 11:22 Creatine Kinase 118 U/L (30-223) 12/31/17 11:22 Troponin I < 0.01 ng/mL (0.01-0.05) L 12/31/17 11:22 C-Reactive Protein < 0.2 mg/dL (0.0-0.9) 01/01/18 05:45 B-Natriuretic Peptide 80.6 pg/mL (5.0-100.0) 12/31/17 11:22 Total Protein 7.5 gm/dL (6.0-8.3) 12/31/17 11:22 Albumin 4.1 gm/dL (4.2-5.5) L 12/31/17 11:22 Globulin 3.4 gm/dL 12/31/17 11:22 Albumin/Globulin Ratio 1.2 (1.0-1.8) 12/31/17 11:22 Triglycerides 68 mg/dL (<150) 12/31/17 11:22 Cholesterol 102 mg/dL (<200) 12/31/17 11:22 LDL Cholesterol Direct 59 mg/dL (75-193) L 12/31/17 11:22 HDL Cholesterol 35 mg/dL (23-92) 12/31/17 11:22 TSH 3.23 uIU/ml (0.34-5.60) 01/01/18 05:45 Urine Source MIDSTREAM 01/02/18 14:15 Urine Color YELLOW 01/02/18 14:15 Urine Clarity CLEAR (CLEAR) 01/02/18 14:15 Urine pH 6.0 (4.6 - 8.0) 01/02/18 14:15 Ur Specific [place] 1.025 (1.005-1.030) 01/02/18 14:15 Urine Protein NEGATIVE mg/dL (NEGATIVE) 01/02/18 14:15 Urine Glucose (UA) NEGATIVE mg/dL (NEGATIVE) 01/02/18 14:15 Urine Ketones NEGATIVE mg/dL (NEGATIVE) 01/02/18 14:15 Urine Blood NEGATIVE (NEGATIVE) 01/02/18 14:15 Urine Nitrate NEGATIVE (NEGATIVE) 01/02/18 14:15 Urine Bilirubin NEGATIVE (NEGATIVE) 01/02/18 14:15 Urine Urobilinogen 0.2 E.U./dL (0.2 - 1.0) 01/02/18 14:15 Ur Leukocyte Esterase NEGATIVE (NEGATIVE) 01/02/18 14:15 Ur Random Sodium 176 mmol/L 01/02/18 14:15 - Physical Exam Vitals and I&O: Vital Signs Temp 97.8 F 01/04/18 04:00 Pulse 57 01/04/18 04:00 Resp 18 01/04/18 04:00 BP 130/73 01/04/18 04:00 Pulse Ox 98 01/04/18 04:00 Intake & Output 01/03/18 01/04/18 01/04/18 18:59 06:59 18:59 Intake Total 500 1000 Balance 500 1000 Weight (lbs) 62.142 kg 62.142 kg Intake: Intake, IV Amount 1000 Sodium Chloride 0.9% 1, 1000 000 ml @ 50 mls/hr IV . Q20H [facility] Rx#:[id number] Oral 500 Other: # Voids 3 # Bowel Movements 0 Weight Source Bedscale Bedscale Active Medications: Current Medications Acetaminophen/Hydrocodone Bitart ([place] 5mg/325mg) 1 tab PO Q6H PRN PRN Reason: mild to moderate pain Stop: 03/01/18 22:38 Last Admin: 01/02/18 21:44 Dose: 1 tab Alprazolam (Xanax) 0.25 mg PO Q12HR PRN; Protocol PRN Reason: Anxiety Stop: 03/01/18 20:59 Last Admin: 01/03/18 14:49 Dose: 0.25 mg Carbidopa/Levodopa (Sinemet 25mg-100 Mg) 1 tab PO QID [facility] Stop: 03/01/18 20:59 Last Admin: 01/03/18 21:08 Dose: 1 tab Carbidopa/Levodopa (Sinemet Cr 50mg-200mg) 1 ter PO BID@0730,1930 [facility] Stop: 03/02/18 19:29 Last Admin: 01/04/18 06:39 Dose: 1 ter Sodium Chloride (Nacl 0.9%) 1,000 mls @ 50 mls/hr IV .Q20H [facility] Stop: 03/01/18 16:14 Last Admin: 01/04/18 02:13 Dose: 50 mls/hr Tobramycin/Dexamethasone (Tobradex 0.1%-0.3% Ophth Susp 2.5ml) 2 drop EACH EYE BID [facility] Stop: 03/03/18 08:59 Last Admin: 01/03/18 16:03 Dose: 2 drop General: Alert, No acute distress HEENT: Atraumatic, PERRLA, EOMI, Mucous membr. moist/pink Neck: Supple, +2 carotid pulse wo bruit Cardiovascular: Regular rate, Normal S1, Normal S2 Lungs: Clear to auscultation Abdomen: Bowel sounds, Soft Extremities: no Edema Neurological: Sensation intact Skin: no Rash Psych/Mental Status: Mood NL
[2018-01-04] MEDS: Dexamethasone/Tobramycin Ophth Susp 2.5 mL Bottle EACH EYE SCH ×2 (08:47→18:44)
--- NOTE | 2018-01-04 13:57 | General Progress Note ---
Subjective - Review of Systems Service Date: 01/04/18 Subjective: still w/ ataxia, but less Objective - Results Result Diagrams: 01/01/18 05:45 01/01/18 05:45 Recent Labs: Laboratory Last Values WBC 4.9 Th/cmm (4.8-10.8) 01/01/18 05:45 RBC 4.79 Mil/cmm (3.80-5.80) 01/01/18 05:45 Hgb 14.3 gm/dL (12-16) 01/01/18 05:45 Hct 41.6 % (41.0-60) 01/01/18 05:45 MCV 86.9 fl (80-99) 01/01/18 05:45 MCH 29.9 pg (27.0-31.0) 01/01/18 05:45 MCHC Differential 34.4 pg (28.0-36.0) 01/01/18 05:45 RDW 12.7 % (11.5-20.0) 01/01/18 05:45 Plt Count 190 Th/cmm (150-400) 01/01/18 05:45 MPV 8.7 fl 01/01/18 05:45 Neutrophils % 65.3 % (40.0-80.0) 01/01/18 05:45 Lymphocytes % 21.4 % (20.0-50.0) 01/01/18 05:45 Monocytes % 11.7 % (2.0-10.0) H 01/01/18 05:45 Eosinophils % 1.5 % (0.0-5.0) 01/01/18 05:45 Basophils % 0.1 % (0.0-2.0) 01/01/18 05:45 ESR 20 mm/hr (0-20) 01/01/18 05:45 PT 10.4 SECONDS (9.5-11.5) 12/31/17 11:22 INR 1.00 (0.5-1.4) 12/31/17 11:22 Sodium 136 mEq/L (136-145) 01/01/18 05:45 Potassium 4.3 mEq/L (3.5-5.1) 01/01/18 05:45 Chloride 104 mEq/L (98-107) 01/01/18 05:45 Carbon Dioxide 27.0 mEq/L (21.0-31.0) 01/01/18 05:45 Anion Gap 9.3 (7.0-16.0) 01/01/18 05:45 BUN 16 mg/dL (7-25) 01/01/18 05:45 Creatinine 0.9 mg/dL (0.7-1.3) 01/01/18 05:45 Est GFR ( Amer) > 60.0 ml/min (>90) 01/01/18 05:45 Est GFR (Non-Af Amer) > 60.0 ml/min 01/01/18 05:45 BUN/Creatinine Ratio 17.8 01/01/18 05:45 Glucose 104 mg/dL (70-105) 01/01/18 05:45 Uric Acid 3.0 mg/dL (4.4-7.6) L 01/02/18 08:08 Calcium 9.6 mg/dL (8.6-10.3) 01/01/18 05:45 Total Bilirubin 0.4 mg/dL (0.3-1.0) 12/31/17 11:22 AST 15 U/L (13-39) 12/31/17 11:22 ALT 4 U/L (7-52) L 12/31/17 11:22 Alkaline Phosphatase 54 U/L (34-104) 12/31/17 11:22 Creatine Kinase 118 U/L (30-223) 12/31/17 11:22 Troponin I < 0.01 ng/mL (0.01-0.05) L 12/31/17 11:22 C-Reactive Protein < 0.2 mg/dL (0.0-0.9) 01/01/18 05:45 B-Natriuretic Peptide 80.6 pg/mL (5.0-100.0) 12/31/17 11:22 Total Protein 7.5 gm/dL (6.0-8.3) 12/31/17 11:22 Albumin 4.1 gm/dL (4.2-5.5) L 12/31/17 11:22 Globulin 3.4 gm/dL 12/31/17 11:22 Albumin/Globulin Ratio 1.2 (1.0-1.8) 12/31/17 11:22 Triglycerides 68 mg/dL (<150) 12/31/17 11:22 Cholesterol 102 mg/dL (<200) 12/31/17 11:22 LDL Cholesterol Direct 59 mg/dL (75-193) L 12/31/17 11:22 HDL Cholesterol 35 mg/dL (23-92) 12/31/17 11:22 TSH 3.23 uIU/ml (0.34-5.60) 01/01/18 05:45 Urine Source MIDSTREAM 01/02/18 14:15 Urine Color YELLOW 01/02/18 14:15 Urine Clarity CLEAR (CLEAR) 01/02/18 14:15 Urine pH 6.0 (4.6 - 8.0) 01/02/18 14:15 Ur Specific [place] 1.025 (1.005-1.030) 01/02/18 14:15 Urine Protein NEGATIVE mg/dL (NEGATIVE) 01/02/18 14:15 Urine Glucose (UA) NEGATIVE mg/dL (NEGATIVE) 01/02/18 14:15 Urine Ketones NEGATIVE mg/dL (NEGATIVE) 01/02/18 14:15 Urine Blood NEGATIVE (NEGATIVE) 01/02/18 14:15 Urine Nitrate NEGATIVE (NEGATIVE) 01/02/18 14:15 Urine Bilirubin NEGATIVE (NEGATIVE) 01/02/18 14:15 Urine Urobilinogen 0.2 E.U./dL (0.2 - 1.0) 01/02/18 14:15 Ur Leukocyte Esterase NEGATIVE (NEGATIVE) 01/02/18 14:15 Ur Random Sodium 176 mmol/L 01/02/18 14:15 - Physical Exam Vitals and I&O: Vital Signs Temp 97.8 F 01/04/18 04:00 Pulse 57 01/04/18 04:00 Resp 18 01/04/18 12:00 BP 130/73 01/04/18 04:00 Pulse Ox 98 01/04/18 04:00 Intake & Output 01/03/18 01/04/18 01/04/18 18:59 06:59 18:59 Intake Total 500 1000 260 Balance 500 1000 260 Weight (lbs) 62.142 kg 62.142 kg 62.142 kg Intake: Intake, IV Amount 1000 Sodium Chloride 0.9% 1, 1000 000 ml @ 50 mls/hr IV . Q20H [facility] Rx#:[id number] Oral 500 260 Other: # Voids 3 # Bowel Movements 0 Weight Source Bedscale Bedscale Bedscale Active Medications: Current Medications Acetaminophen/Hydrocodone Bitart ([place] 5mg/325mg) 1 tab PO Q6H PRN PRN Reason: mild to moderate pain Stop: 03/01/18 22:38 Last Admin: 01/02/18 21:44 Dose: 1 tab Alprazolam (Xanax) 0.25 mg PO Q12HR PRN; Protocol PRN Reason: Anxiety Stop: 03/01/18 20:59 Last Admin: 01/04/18 08:45 Dose: 0.25 mg Carbidopa/Levodopa (Sinemet 25mg-100 Mg) 1 tab PO QID [facility] Stop: 03/01/18 20:59 Last Admin: 01/04/18 08:46 Dose: 1 tab Carbidopa/Levodopa (Sinemet Cr 50mg-200mg) 1 ter PO BID@0730,1930 [facility] Stop: 03/02/18 19:29 Last Admin: 01/04/18 06:39 Dose: 1 ter Sodium Chloride (Nacl 0.9%) 1,000 mls @ 50 mls/hr IV .Q20H [facility] Stop: 03/01/18 16:14 Last Admin: 01/04/18 02:13 Dose: 50 mls/hr Tobramycin/Dexamethasone (Tobradex 0.1%-0.3% Ophth Susp 2.5ml) 2 drop EACH EYE BID [facility] Stop: 03/03/18 08:59 Last Admin: 01/04/18 08:47 Dose: 2 drop General: Alert, No acute distress HEENT: Atraumatic, PERRLA, EOMI, Mucous membr. moist/pink Neck: Supple, +2 carotid pulse wo bruit Cardiovascular: Regular rate, Normal S1, Normal S2 Lungs: Clear to auscultation Abdomen: Bowel sounds, Soft Extremities: no Edema Neurological: Sensation intact Skin: no Rash Psych/Mental Status: Mood NL Assessment/Plan - Assessment Assessment: Hyponatremia resolved Multiple falls 2/2 Parkinson, orthostatic hypotension, bradycardia, med induced Ess Htn Parkinson Ds Dyslipidemia - Plan Plan: Lab - Result Diagrams 01/01/18 05:45 01/01/18 05:45 Current Medications Acetaminophen/Hydrocodone Bitart ([place] 5mg/325mg) 1 tab PO Q6H PRN PRN Reason: mild to moderate pain Stop: 03/01/18 22:38 Last Admin: 01/01/18 22:26 Dose: 1 tab Alprazolam (Xanax) 0.25 mg PO Q12HR PRN; Protocol PRN Reason: Anxiety Stop: 03/01/18 20:59 Last Admin: 01/01/18 20:53 Dose: 0.25 mg Carbidopa/Levodopa (Sinemet 25mg-100 Mg) 1 tab PO QID [facility] Stop: 03/01/18 20:59 Last Admin: 01/02/18 14:20 Dose: 1 tab Carbidopa/Levodopa (Sinemet Cr 50mg-200mg) 1 ter PO BID@0730,1930 [facility] Stop: 03/02/18 19:29 Last Admin: 01/02/18 07:29 Dose: 1 ter Sodium Chloride (Nacl 0.9%) 1,000 mls @ 50 mls/hr IV .Q20H [facility] Stop: 03/01/18 16:14 Last Admin: 01/01/18 20:54 Dose: 50 mls/hr Tobramycin/Dexamethasone (Tobradex 0.1%-0.3% Ophth Susp 2.5ml) 2 drop EACH EYE BID [facility] Stop: 03/03/18 08:59 Last Admin: 01/02/18 09:21 Dose: 2 drop Lab - Result Diagrams 01/01/18 05:45 01/01/18 05:45 Na stable BP & HR better continue PT Cervical Spine CT: DJD MRI: extradural densities/indentations w/ deg spur formation
[2018-01-04] MEDS: Hydrocodone/APAP 5mg/325mg Tab PO PRN (15:28)
--- NOTE | 2018-01-04 18:15 | Consultation ---
Consult Note - Consult Note Service Date: 01/04/18 Referring Physician: Robert Cox Consult Note: PHYSICIAN Consultation Note: Date of Admission: 12/31/17 Purpose of Consultation: Weakness on right upper extremity. Chief Complaint: Patient KEI PETTY was admitted to [facility] Telemetry with NEAR SYNCOPE, FREQUENT FALLS. History of Present Illness: 68-year-old male with a past medical history hyperlipidemia, dementia, Parkinson disease, hypertension, had multiple falls at home because of weakness on the right side and imbalance. Patient denies any fever or chills. Patient has flexion contractures and stiffness of right hand. Past Medical History: Hypertension, hyperlipidemia, dementia, Parkinson's disease, right upper and lower extremity weakness. Diagnoses HYPERLIPIDEMIA, UNSPECIFIED (12/31/17) HYPO-OSMOLALITY AND HYPONATREMIA (12/31/17) DEMENTIA IN OTH DISEASES CLASSD ELSWHR W/O BEHAVRL DISTURB (12/31/17) UNSPECIFIED DEMENTIA WITHOUT BEHAVIORAL DISTURBANCE (12/31/17) PARKINSON'S DISEASE (12/31/17) ESSENTIAL (PRIMARY) HYPERTENSION (12/31/17) SYNCOPE AND COLLAPSE (12/31/17) Allergies Allergy/AdvReac Type Severity Reaction Status Date / Time No Known Allergies Allergy Verified 12/31/17 11:06 Vital Signs Temp 97.8 F 01/04/18 04:00 Pulse 57 01/04/18 04:00 Resp 18 01/04/18 16:00 BP 130/73 01/04/18 04:00 Pulse Ox 98 01/04/18 04:00 Intake & Output 01/03/18 01/04/18 01/04/18 18:59 06:59 18:59 Intake Total 500 1000 260 Balance 500 1000 260 Weight (lbs) 62.142 kg 62.142 kg 62.142 kg Intake: Intake, IV Amount 1000 Sodium Chloride 0.9% 1, 1000 000 ml @ 50 mls/hr IV . Q20H [facility] Rx#:[id number] Oral 500 260 Other: # Voids 3 # Bowel Movements 0 Weight Source Bedscale Bedscale Bedscale Home Medication Medication Instructions Recorded Type Alprazolam [Alprazolam*] 1 tab PO Q12H PRN 12/31/17 History Amlodipine Besylate 1 tab PO DAILY 12/31/17 History Atenolol 1 tab PO DAILY 12/31/17 History Carbidopa/Levodopa 50/200 mg 1 tab PO BID 12/31/17 History [Sinemet CR 50mg-200mg] Carbidopa/Levodopa 1 tab PO QID 12/31/17 History [Carbidopa-Levodopa 25-100 Tab] Current Medications Generic Name Dose Route Start Last Admin Trade Name Freq PRN Reason Stop Dose Admin Acetaminophen/Hydrocodone Bitart 1 tab 12/31/17 22:39 01/04/18 15:28 [place] 5mg/325mg PO 03/01/18 22:38 1 tab Q6H PRN Administration mild to moderate pain Alprazolam 0.25 mg 01/04/18 17:32 Xanax PO 03/05/18 17:31 Q6HR PRN Anxiety Protocol Baclofen 10 mg 01/05/18 09:00 Lioresal PO 03/06/18 08:59 BID [facility] Baclofen 10 mg 01/04/18 18:01 Lioresal PO 01/04/18 18:02 NOW ONE Carbidopa/Levodopa 1 tab 12/31/17 21:00 01/04/18 14:29 Sinemet 25mg-100 Mg PO 03/01/18 20:59 1 tab QID [facility] Administration Carbidopa/Levodopa 1 ter 01/01/18 19:30 01/04/18 06:39 Sinemet Cr 50mg-200mg PO 03/02/18 19:[address] 1 [address] BID@0730,1930 [facility] Administration Sodium Chloride 1,000 mls @ 50 mls/hr 12/31/17 16:15 01/04/18 02:13 Nacl 0.9% IV 03/01/18 16:14 50 mls/hr .Q20H [facility] Administration Tobramycin/Dexamethasone 2 drop 01/02/18 09:00 01/04/18 08:47 Tobradex 0.1%-0.3% Ophth Susp 2.5ml EACH EYE 03/03/18 08:59 2 drop BID [facility] Administration Review of Systems: A 12 point ROS was reviewed with the pertinent positive and negatives noted in the HPI. Social History Smoking Status Never smoker Drug Use No Alcohol Use No Family Medical History Family Medical History Start: 12/31/17 15: 23 Freq: ONCE Status: Active Document 12/31/17 16:00 JOSE (Rec: 12/31/17 18:53 JOSE [id number] ) Family Medical History Mother History Unknown Yes Physical Exam: General: Comfortable, lying in bed not in acute distress. HEENT: Head: Normocephalic, atraumatic. Oral cavity: Moist, pink tongue. Eyes : No pallor present no icterus. Neck: Upper, no JVD. No carotid bruit. Cardio: S1 and S2 within normal limits regular rhythm. Respiratory: Vesicular breath sound. No crackles or wheezing. Abdominal: Soft, nontender nondistended bowel sounds present. Genital/Urinary: Deferred. Extremities: No cyanosis, no clubbing no edema Neurological: Alert awake oriented 3. Patient has weakness in the right upper extremity. There is a spasm of right hand and wrist muscle with flexion contracture. Assessment: 1. Weakness of right sided upper and lower leg. 2. Spasm of right hand muscles. 3. Parkinson's disease. 4. Hypertension. 5. Hyperlipidemia. Plan: Will continue same treatment. Plan apply splint to right hand. Muscle relaxant and pain medication. Further workup for neurology art consultant. Thank you, Dr. Cox, for involving me in taking care of this patient. Signed, Gaudencio Marte M.D. 01/04/[id number]
[2018-01-05] MEDS: Carbidopa/Levodopa 50/200 mg 1 TER TER PO SCH ×2 (08:47→21:32)
[2018-01-05] MEDS: Dexamethasone/Tobramycin Ophth Susp 2.5 mL Bottle EACH EYE SCH ×2 (08:49→17:54)
[2018-01-05] MEDS: Hydrocodone/APAP 5mg/325mg Tab PO PRN (13:32)
--- NOTE | 2018-01-05 14:37 | General Progress Note ---
Subjective - Review of Systems Service Date: 01/05/18 Subjective: still w/ ataxia, but less Objective - Results Result Diagrams: 01/01/18 05:45 01/01/18 05:45 Recent Labs: Laboratory Last Values WBC 4.9 Th/cmm (4.8-10.8) 01/01/18 05:45 RBC 4.79 Mil/cmm (3.80-5.80) 01/01/18 05:45 Hgb 14.3 gm/dL (12-16) 01/01/18 05:45 Hct 41.6 % (41.0-60) 01/01/18 05:45 MCV 86.9 fl (80-99) 01/01/18 05:45 MCH 29.9 pg (27.0-31.0) 01/01/18 05:45 MCHC Differential 34.4 pg (28.0-36.0) 01/01/18 05:45 RDW 12.7 % (11.5-20.0) 01/01/18 05:45 Plt Count 190 Th/cmm (150-400) 01/01/18 05:45 MPV 8.7 fl 01/01/18 05:45 Neutrophils % 65.3 % (40.0-80.0) 01/01/18 05:45 Lymphocytes % 21.4 % (20.0-50.0) 01/01/18 05:45 Monocytes % 11.7 % (2.0-10.0) H 01/01/18 05:45 Eosinophils % 1.5 % (0.0-5.0) 01/01/18 05:45 Basophils % 0.1 % (0.0-2.0) 01/01/18 05:45 ESR 20 mm/hr (0-20) 01/01/18 05:45 PT 10.4 SECONDS (9.5-11.5) 12/31/17 11:22 INR 1.00 (0.5-1.4) 12/31/17 11:22 Sodium 136 mEq/L (136-145) 01/01/18 05:45 Potassium 4.3 mEq/L (3.5-5.1) 01/01/18 05:45 Chloride 104 mEq/L (98-107) 01/01/18 05:45 Carbon Dioxide 27.0 mEq/L (21.0-31.0) 01/01/18 05:45 Anion Gap 9.3 (7.0-16.0) 01/01/18 05:45 BUN 16 mg/dL (7-25) 01/01/18 05:45 Creatinine 0.9 mg/dL (0.7-1.3) 01/01/18 05:45 Est GFR ( Amer) > 60.0 ml/min (>90) 01/01/18 05:45 Est GFR (Non-Af Amer) > 60.0 ml/min 01/01/18 05:45 BUN/Creatinine Ratio 17.8 01/01/18 05:45 Glucose 104 mg/dL (70-105) 01/01/18 05:45 Uric Acid 3.0 mg/dL (4.4-7.6) L 01/02/18 08:08 Calcium 9.6 mg/dL (8.6-10.3) 01/01/18 05:45 Total Bilirubin 0.4 mg/dL (0.3-1.0) 12/31/17 11:22 AST 15 U/L (13-39) 12/31/17 11:22 ALT 4 U/L (7-52) L 12/31/17 11:22 Alkaline Phosphatase 54 U/L (34-104) 12/31/17 11:22 Creatine Kinase 118 U/L (30-223) 12/31/17 11:22 Troponin I < 0.01 ng/mL (0.01-0.05) L 12/31/17 11:22 C-Reactive Protein < 0.2 mg/dL (0.0-0.9) 01/01/18 05:45 B-Natriuretic Peptide 80.6 pg/mL (5.0-100.0) 12/31/17 11:22 Total Protein 7.5 gm/dL (6.0-8.3) 12/31/17 11:22 Albumin 4.1 gm/dL (4.2-5.5) L 12/31/17 11:22 Globulin 3.4 gm/dL 12/31/17 11:22 Albumin/Globulin Ratio 1.2 (1.0-1.8) 12/31/17 11:22 Triglycerides 68 mg/dL (<150) 12/31/17 11:22 Cholesterol 102 mg/dL (<200) 12/31/17 11:22 LDL Cholesterol Direct 59 mg/dL (75-193) L 12/31/17 11:22 HDL Cholesterol 35 mg/dL (23-92) 12/31/17 11:22 TSH 3.23 uIU/ml (0.34-5.60) 01/01/18 05:45 Urine Source MIDSTREAM 01/02/18 14:15 Urine Color YELLOW 01/02/18 14:15 Urine Clarity CLEAR (CLEAR) 01/02/18 14:15 Urine pH 6.0 (4.6 - 8.0) 01/02/18 14:15 Ur Specific [place] 1.025 (1.005-1.030) 01/02/18 14:15 Urine Protein NEGATIVE mg/dL (NEGATIVE) 01/02/18 14:15 Urine Glucose (UA) NEGATIVE mg/dL (NEGATIVE) 01/02/18 14:15 Urine Ketones NEGATIVE mg/dL (NEGATIVE) 01/02/18 14:15 Urine Blood NEGATIVE (NEGATIVE) 01/02/18 14:15 Urine Nitrate NEGATIVE (NEGATIVE) 01/02/18 14:15 Urine Bilirubin NEGATIVE (NEGATIVE) 01/02/18 14:15 Urine Urobilinogen 0.2 E.U./dL (0.2 - 1.0) 01/02/18 14:15 Ur Leukocyte Esterase NEGATIVE (NEGATIVE) 01/02/18 14:15 Ur Random Sodium 176 mmol/L 01/02/18 14:15 - Physical Exam Vitals and I&O: Vital Signs Temp 97.8 F 01/05/18 12:22 Pulse 69 01/05/18 12:22 Resp 20 01/05/18 12:22 BP 124/67 01/05/18 12:22 Pulse Ox 98 01/05/18 12:22 Intake & Output 01/04/18 01/05/18 01/05/18 18:59 06:59 18:59 Intake Total 260 1.667 Balance 260 1.667 Weight (lbs) 62.142 kg 62.913 kg Intake: Intake, IV Amount 981.667 Sodium Chloride 0.9% 1, 981.667 000 ml @ 50 mls/hr IV . Q20H [facility] Rx#:[id number] Oral 260 1000 Other 60 Other: # Voids 3 # Bowel Movements 1 Weight Source Bedscale Bedscale Active Medications: Current Medications Acetaminophen/Hydrocodone Bitart ([place] 5mg/325mg) 1 tab PO Q6H PRN PRN Reason: mild to moderate pain Stop: 03/01/18 22:38 Last Admin: 01/05/18 13:32 Dose: 1 tab Alprazolam (Xanax) 0.25 mg PO Q6HR PRN; Protocol PRN Reason: Anxiety Stop: 03/05/18 17:31 Last Admin: 01/05/18 13:32 Dose: 0.25 mg Baclofen (Lioresal) 10 mg PO BID [facility] Stop: 03/06/18 08:59 Last Admin: 01/05/18 08:49 Dose: 10 mg Carbidopa/Levodopa (Sinemet 25mg-100 Mg) 1 tab PO QID [facility] Stop: 03/01/18 20:59 Last Admin: 01/05/18 13:32 Dose: 1 tab Carbidopa/Levodopa (Sinemet Cr 50mg-200mg) 1 ter PO BID@0730,1930 [facility] Stop: 03/02/18 19:29 Last Admin: 01/05/18 08:47 Dose: Not Given Sodium Chloride (Nacl 0.9%) 1,000 mls @ 50 mls/hr IV .Q20H [facility] Stop: 03/01/18 16:14 Last Admin: 01/04/18 21:51 Dose: 50 mls/hr Tobramycin/Dexamethasone (Tobradex 0.1%-0.3% Ophth Susp 2.5ml) 2 drop EACH EYE BID [facility] Stop: 03/03/18 08:59 Last Admin: 01/05/18 08:49 Dose: 2 drop General: Alert, No acute distress HEENT: Atraumatic, PERRLA, EOMI, Mucous membr. moist/pink Neck: Supple, +2 carotid pulse wo bruit Cardiovascular: Regular rate, Normal S1, Normal S2 Lungs: Clear to auscultation Abdomen: Bowel sounds, Soft Extremities: no Edema Neurological: Sensation intact Skin: no Rash Psych/Mental Status: Mood NL Assessment/Plan - Assessment Assessment: Hyponatremia resolved Multiple falls 2/2 Parkinson, orthostatic hypotension, bradycardia, med induced Ess Htn Parkinson Ds Dyslipidemia - Plan Plan: Lab - Result Diagrams 01/01/18 05:45 01/01/18 05:45 Current Medications Acetaminophen/Hydrocodone Bitart ([place] 5mg/325mg) 1 tab PO Q6H PRN PRN Reason: mild to moderate pain Stop: 03/01/18 22:38 Last Admin: 01/01/18 22:26 Dose: 1 tab Alprazolam (Xanax) 0.25 mg PO Q12HR PRN; Protocol PRN Reason: Anxiety Stop: 03/01/18 20:59 Last Admin: 01/01/18 20:53 Dose: 0.25 mg Carbidopa/Levodopa (Sinemet 25mg-100 Mg) 1 tab PO QID [facility] Stop: 03/01/18 20:59 Last Admin: 01/02/18 14:20 Dose: 1 tab Carbidopa/Levodopa (Sinemet Cr 50mg-200mg) 1 ter PO BID@0730,1930 [facility] Stop: 03/02/18 19:29 Last Admin: 01/02/18 07:29 Dose: 1 ter Sodium Chloride (Nacl 0.9%) 1,000 mls @ 50 mls/hr IV .Q20H [facility] Stop: 03/01/18 16:14 Last Admin: 01/01/18 20:54 Dose: 50 mls/hr Tobramycin/Dexamethasone (Tobradex 0.1%-0.3% Ophth Susp 2.5ml) 2 drop EACH EYE BID [facility] Stop: 03/03/18 08:59 Last Admin: 01/02/18 09:21 Dose: 2 drop Lab - Result Diagrams 01/01/18 05:45 01/01/18 05:45 Na stable BP & HR better continue PT Cervical Spine CT: DJD MRI: extradural densities/indentations w/ deg spur formation
--- NOTE | 2018-01-05 23:57 | Infectious Disease Prog Note ---
Infectious Disease Subjective - Review of Systems Service Date: 01/05/18 Subjective: No fever, no change, Infectious Disease Objective - Results Result Diagrams: 01/01/18 05:45 01/01/18 05:45 Recent Labs: Laboratory Last Values WBC 4.9 Th/cmm (4.8-10.8) 01/01/18 05:45 RBC 4.79 Mil/cmm (3.80-5.80) 01/01/18 05:45 Hgb 14.3 gm/dL (12-16) 01/01/18 05:45 Hct 41.6 % (41.0-60) 01/01/18 05:45 MCV 86.9 fl (80-99) 01/01/18 05:45 MCH 29.9 pg (27.0-31.0) 01/01/18 05:45 MCHC Differential 34.4 pg (28.0-36.0) 01/01/18 05:45 RDW 12.7 % (11.5-20.0) 01/01/18 05:45 Plt Count 190 Th/cmm (150-400) 01/01/18 05:45 MPV 8.7 fl 01/01/18 05:45 Neutrophils % 65.3 % (40.0-80.0) 01/01/18 05:45 Lymphocytes % 21.4 % (20.0-50.0) 01/01/18 05:45 Monocytes % 11.7 % (2.0-10.0) H 01/01/18 05:45 Eosinophils % 1.5 % (0.0-5.0) 01/01/18 05:45 Basophils % 0.1 % (0.0-2.0) 01/01/18 05:45 ESR 20 mm/hr (0-20) 01/01/18 05:45 PT 10.4 SECONDS (9.5-11.5) 12/31/17 11:22 INR 1.00 (0.5-1.4) 12/31/17 11:22 Sodium 136 mEq/L (136-145) 01/01/18 05:45 Potassium 4.3 mEq/L (3.5-5.1) 01/01/18 05:45 Chloride 104 mEq/L (98-107) 01/01/18 05:45 Carbon Dioxide 27.0 mEq/L (21.0-31.0) 01/01/18 05:45 Anion Gap 9.3 (7.0-16.0) 01/01/18 05:45 BUN 16 mg/dL (7-25) 01/01/18 05:45 Creatinine 0.9 mg/dL (0.7-1.3) 01/01/18 05:45 Est GFR ( Amer) > 60.0 ml/min (>90) 01/01/18 05:45 Est GFR (Non-Af Amer) > 60.0 ml/min 01/01/18 05:45 BUN/Creatinine Ratio 17.8 01/01/18 05:45 Glucose 104 mg/dL (70-105) 01/01/18 05:45 Uric Acid 3.0 mg/dL (4.4-7.6) L 01/02/18 08:08 Calcium 9.6 mg/dL (8.6-10.3) 01/01/18 05:45 Total Bilirubin 0.4 mg/dL (0.3-1.0) 12/31/17 11:22 AST 15 U/L (13-39) 12/31/17 11:22 ALT 4 U/L (7-52) L 12/31/17 11:22 Alkaline Phosphatase 54 U/L (34-104) 12/31/17 11:22 Creatine Kinase 118 U/L (30-223) 12/31/17 11:22 Troponin I < 0.01 ng/mL (0.01-0.05) L 12/31/17 11:22 C-Reactive Protein < 0.2 mg/dL (0.0-0.9) 01/01/18 05:45 B-Natriuretic Peptide 80.6 pg/mL (5.0-100.0) 12/31/17 11:22 Total Protein 7.5 gm/dL (6.0-8.3) 12/31/17 11:22 Albumin 4.1 gm/dL (4.2-5.5) L 12/31/17 11:22 Globulin 3.4 gm/dL 12/31/17 11:22 Albumin/Globulin Ratio 1.2 (1.0-1.8) 12/31/17 11:22 Triglycerides 68 mg/dL (<150) 12/31/17 11:22 Cholesterol 102 mg/dL (<200) 12/31/17 11:22 LDL Cholesterol Direct 59 mg/dL (75-193) L 12/31/17 11:22 HDL Cholesterol 35 mg/dL (23-92) 12/31/17 11:22 TSH 3.23 uIU/ml (0.34-5.60) 01/01/18 05:45 Urine Source MIDSTREAM 01/02/18 14:15 Urine Color YELLOW 01/02/18 14:15 Urine Clarity CLEAR (CLEAR) 01/02/18 14:15 Urine pH 6.0 (4.6 - 8.0) 01/02/18 14:15 Ur Specific [place] 1.025 (1.005-1.030) 01/02/18 14:15 Urine Protein NEGATIVE mg/dL (NEGATIVE) 01/02/18 14:15 Urine Glucose (UA) NEGATIVE mg/dL (NEGATIVE) 01/02/18 14:15 Urine Ketones NEGATIVE mg/dL (NEGATIVE) 01/02/18 14:15 Urine Blood NEGATIVE (NEGATIVE) 01/02/18 14:15 Urine Nitrate NEGATIVE (NEGATIVE) 01/02/18 14:15 Urine Bilirubin NEGATIVE (NEGATIVE) 01/02/18 14:15 Urine Urobilinogen 0.2 E.U./dL (0.2 - 1.0) 01/02/18 14:15 Ur Leukocyte Esterase NEGATIVE (NEGATIVE) 01/02/18 14:15 Ur Random Sodium 176 mmol/L 01/02/18 14:15 - Physical Exam Vitals and I&O: Vital Signs Temp 97.9 F 01/05/18 15:14 Pulse 65 01/05/18 15:14 Resp 18 01/05/18 16:00 BP 123/80 01/05/18 15:14 Pulse Ox 97 01/05/18 15:14 Intake & Output 01/05/18 01/05/18 01/06/18 06:59 18:59 06:59 Intake Total 800 Balance 800 Weight (lbs) 62.913 kg 62.913 kg Intake: Intake, IV Amount 981.667 Sodium Chloride 0.9% 1, 981.667 000 ml @ 50 mls/hr IV . Q20H [facility] Rx#:[id number] Oral 1000 800 Other 60 Other: # Voids 3 3 # Bowel Movements 1 0 Weight Source Bedscale Bedscale Active Medications: Current Medications Acetaminophen/Hydrocodone Bitart ([place] 5mg/325mg) 1 tab PO Q6H PRN PRN Reason: mild to moderate pain Stop: 03/01/18 22:38 Last Admin: 01/05/18 13:32 Dose: 1 tab Alprazolam (Xanax) 0.25 mg PO Q6HR PRN; Protocol PRN Reason: Anxiety Stop: 03/05/18 17:31 Last Admin: 01/05/18 13:32 Dose: 0.25 mg Baclofen (Lioresal) 10 mg PO BID [facility] Stop: 03/06/18 08:59 Last Admin: 01/05/18 17:48 Dose: 10 mg Carbidopa/Levodopa (Sinemet 25mg-100 Mg) 1 tab PO QID [facility] Stop: 03/01/18 20:59 Last Admin: 01/05/18 21:31 Dose: 1 tab Carbidopa/Levodopa (Sinemet Cr 50mg-200mg) 1 ter PO BID@0730,1930 [facility] Stop: 03/02/18 19:29 Last Admin: 01/05/18 21:32 Dose: Not Given Sodium Chloride (Nacl 0.9%) 1,000 mls @ 50 mls/hr IV .Q20H [facility] Stop: 03/01/18 16:14 Last Admin: 01/04/18 21:51 Dose: 50 mls/hr Tobramycin/Dexamethasone (Tobradex 0.1%-0.3% Ophth Susp 2.5ml) 2 drop EACH EYE BID [facility] Stop: 03/03/18 08:59 Last Admin: 01/05/18 17:54 Dose: 2 drop General: no acute distress, well developed, well nourished HEENT: atraumatic, normocephalic, PERRLA, EOMI Neck: supple, no thyromegaly, no lymphadenopathy Cardiovascular: S1S2, regular Lungs: clear to auscultation bilaterally, clear to percussion Abdomen: soft, no tender, no distended Extremities: other (right hand in flexion.), no cyanosis, no clubbing, no edema Neurological: awake, alert Skin: intact Infectious Disease Assmt/Plan - Assessment Assessment: 1. Weakness of right sided upper and lower leg symptoms. 2. Spasm of right hand muscles. 3. Parkinson's disease. 4. Hypertension. 5. Hyperlipidemia. - Plan Plan: CPM. Nutritional Asmnt/Malnutr-PDOC - Dietary Evaluation Malnutrition Findings (Please click <Entered> for more info): Nutritional Asmnt/Malnutrition Start: 01/05/18 16: 37 Text: Status: Complete Freq: Document 01/05/18 16:37 DEVONTE (Rec: 01/05/18 16:59 [email or web address] Nutritional Asmnt/Malnutrition Patient General Information Nutritional Screening Moderate Risk Diagnosis near syncope, frequent falls Pertinent Medical Hx/Surgical Hx HTN, hyperlipidemia, dementia, parkinson Subjective Information Pt seen lying in bed at time of visit. Pt reported good appetite, he is doing good. Pt does not eat pork. Per EMR, PO intake 75-100%. Current Diet Order/ Nutrition Support regular Pertinent Medications nacl 0.9% Pertinent Labs 01/01 nutrition labs WNL Nutritional Hx/Data Height 1.78 m Height (Calculated Centimeters) 177.8 Current Weight (lbs) 63.049 kg Weight (Calculated Kilograms) 63.0 Weight (Calculated Grams) 13499.3 [place] Body Weight 166 % [place] Body Weight 84 Body Mass Index (BMI) 19.9 Weight Status Approriate GI Symptoms GI Symptoms None Last BM 01/04 Difficult in: None Skin Integrity/Comment: discoloration to buttocks, left and right foot Current %PO Good (75-100%) Estimated Nutritional Goals BEE in Kcals: Using Current wt Calories/Kcals/Kg 25-30 Kcals Calculated 9619-7688 Protein: Using Current wt Protein g/k Protein Calculated 63 Fluid: ml 1575-1890ml (1ml/kcal) Nutritional Problem No current Nutrition Prob Problem N/A Malnutrition Alert Is there a minimum of two criteria No selected? Query Text:Check all the applicable criteria. A minimum of two criteria are recommended for diagnosis of either severe or non-severe malnutrition. Malnutrition Related to Morbid Obesity Malnutrition related to morbid obesity No Intervention/Recommendation Comments 1. Continue with regular diet as ordered. Diet preference updated. 2. Monitor PO intake, wt, labs and skin integrity 3. F/U as low risk in 7 days, 01/12 Expected Outcomes/Goals Expected Outcomes/Goals 1. PO intake to meet at least 75% of nutritional needs. 2. Wt stability, skin to remain intact, labs to approach WNL.
[2018-01-06 07:27] LABS: T4 FREE 1.1
[2018-01-06] MEDS: Dexamethasone/Tobramycin Ophth Susp 2.5 mL Bottle EACH EYE SCH ×2 (09:24→17:51)
[2018-01-06] MEDS: Carbidopa/Levodopa 50/200 mg 1 TER TER PO SCH (09:35)
--- NOTE | 2018-01-06 11:14 | General Progress Note ---
Subjective - Review of Systems Service Date: 01/06/18 Subjective: still w/ ataxia, but less Objective - Results Result Diagrams: 01/01/18 05:45 01/01/18 05:45 Recent Labs: Laboratory Last Values WBC 4.9 Th/cmm (4.8-10.8) 01/01/18 05:45 RBC 4.79 Mil/cmm (3.80-5.80) 01/01/18 05:45 Hgb 14.3 gm/dL (12-16) 01/01/18 05:45 Hct 41.6 % (41.0-60) 01/01/18 05:45 MCV 86.9 fl (80-99) 01/01/18 05:45 MCH 29.9 pg (27.0-31.0) 01/01/18 05:45 MCHC Differential 34.4 pg (28.0-36.0) 01/01/18 05:45 RDW 12.7 % (11.5-20.0) 01/01/18 05:45 Plt Count 190 Th/cmm (150-400) 01/01/18 05:45 MPV 8.7 fl 01/01/18 05:45 Neutrophils % 65.3 % (40.0-80.0) 01/01/18 05:45 Lymphocytes % 21.4 % (20.0-50.0) 01/01/18 05:45 Monocytes % 11.7 % (2.0-10.0) H 01/01/18 05:45 Eosinophils % 1.5 % (0.0-5.0) 01/01/18 05:45 Basophils % 0.1 % (0.0-2.0) 01/01/18 05:45 ESR 20 mm/hr (0-20) 01/01/18 05:45 PT 10.4 SECONDS (9.5-11.5) 12/31/17 11:22 INR 1.00 (0.5-1.4) 12/31/17 11:22 Sodium 136 mEq/L (136-145) 01/01/18 05:45 Potassium 4.3 mEq/L (3.5-5.1) 01/01/18 05:45 Chloride 104 mEq/L (98-107) 01/01/18 05:45 Carbon Dioxide 27.0 mEq/L (21.0-31.0) 01/01/18 05:45 Anion Gap 9.3 (7.0-16.0) 01/01/18 05:45 BUN 16 mg/dL (7-25) 01/01/18 05:45 Creatinine 0.9 mg/dL (0.7-1.3) 01/01/18 05:45 Est GFR ( Amer) > 60.0 ml/min (>90) 01/01/18 05:45 Est GFR (Non-Af Amer) > 60.0 ml/min 01/01/18 05:45 BUN/Creatinine Ratio 17.8 01/01/18 05:45 Glucose 104 mg/dL (70-105) 01/01/18 05:45 Uric Acid 3.0 mg/dL (4.4-7.6) L 01/02/18 08:08 Calcium 9.6 mg/dL (8.6-10.3) 01/01/18 05:45 Total Bilirubin 0.4 mg/dL (0.3-1.0) 12/31/17 11:22 AST 15 U/L (13-39) 12/31/17 11:22 ALT 4 U/L (7-52) L 12/31/17 11:22 Alkaline Phosphatase 54 U/L (34-104) 12/31/17 11:22 Creatine Kinase 118 U/L (30-223) 12/31/17 11:22 Troponin I < 0.01 ng/mL (0.01-0.05) L 12/31/17 11:22 C-Reactive Protein < 0.2 mg/dL (0.0-0.9) 01/01/18 05:45 B-Natriuretic Peptide 80.6 pg/mL (5.0-100.0) 12/31/17 11:22 Total Protein 7.5 gm/dL (6.0-8.3) 12/31/17 11:22 Albumin 4.1 gm/dL (4.2-5.5) L 12/31/17 11:22 Globulin 3.4 gm/dL 12/31/17 11:22 Albumin/Globulin Ratio 1.2 (1.0-1.8) 12/31/17 11:22 Triglycerides 68 mg/dL (<150) 12/31/17 11:22 Cholesterol 102 mg/dL (<200) 12/31/17 11:22 LDL Cholesterol Direct 59 mg/dL (75-193) L 12/31/17 11:22 HDL Cholesterol 35 mg/dL (23-92) 12/31/17 11:22 Aldolase 2.4 01/01/18 05:45 Free T4 1.10 01/01/18 05:45 TSH 3.23 uIU/ml (0.34-5.60) 01/01/18 05:45 Urine Source MID[place] 01/02/18 14:15 Urine Color YELLOW 01/02/18 14:15 Urine Clarity CLEAR (CLEAR) 01/02/18 14:15 Urine pH 6.0 (4.6 - 8.0) 01/02/18 14:15 Ur Specific [place] 1.025 (1.005-1.030) 01/02/18 14:15 Urine Protein NEGATIVE mg/dL (NEGATIVE) 01/02/18 14:15 Urine Glucose (UA) NEGATIVE mg/dL (NEGATIVE) 01/02/18 14:15 Urine Ketones NEGATIVE mg/dL (NEGATIVE) 01/02/18 14:15 Urine Blood NEGATIVE (NEGATIVE) 01/02/18 14:15 Urine Nitrate NEGATIVE (NEGATIVE) 01/02/18 14:15 Urine Bilirubin NEGATIVE (NEGATIVE) 01/02/18 14:15 Urine Urobilinogen 0.2 E.U./dL (0.2 - 1.0) 01/02/18 14:15 Ur Leukocyte Esterase NEGATIVE (NEGATIVE) 01/02/18 14:15 Ur Random Sodium 176 mmol/L 01/02/18 14:15 - Physical Exam Vitals and I&O: Vital Signs Temp 97.8 F 01/06/18 08:25 Pulse 65 01/06/18 08:25 Resp 20 01/06/18 08:25 BP 128/69 01/06/18 08:25 Pulse Ox 100 01/06/18 08:25 Intake & Output 01/05/18 01/06/18 01/06/18 18:59 06:59 18:59 Intake Total 1400 Balance 1400 Weight (lbs) 62.913 kg Intake: Oral 1400 Other: # Voids 2 # Bowel Movements 0 Weight Source Bedscale Active Medications: Current Medications Acetaminophen/Hydrocodone Bitart ([place] 5mg/325mg) 1 tab PO Q6H PRN PRN Reason: mild to moderate pain Stop: 03/01/18 22:38 Last Admin: 01/05/18 13:32 Dose: 1 tab Alprazolam (Xanax) 0.25 mg PO Q6HR PRN; Protocol PRN Reason: Anxiety Stop: 03/05/18 17:31 Last Admin: 01/06/18 10:50 Dose: 0.25 mg Baclofen (Lioresal) 10 mg PO BID [facility] Stop: 03/06/18 08:59 Last Admin: 01/06/18 09:25 Dose: 10 mg Carbidopa/Levodopa (Sinemet 25mg-100 Mg) 1 tab PO QID [facility] Stop: 03/01/18 20:59 Last Admin: 01/06/18 09:26 Dose: 1 tab Carbidopa/Levodopa (Sinemet Cr 50mg-200mg) 1 ter PO BID@0730,1930 [facility] Stop: 03/02/18 19:29 Last Admin: 01/06/18 09:35 Dose: Not Given Sodium Chloride (Nacl 0.9%) 1,000 mls @ 50 mls/hr IV .Q20H [facility] Stop: 03/01/18 16:14 Last Admin: 01/04/18 21:51 Dose: 50 mls/hr Tobramycin/Dexamethasone (Tobradex 0.1%-0.3% Ophth Susp 2.5ml) 2 drop EACH EYE BID [facility] Stop: 03/03/18 08:59 Last Admin: 01/06/18 09:24 Dose: 2 drop General: Alert, No acute distress HEENT: Atraumatic, PERRLA, EOMI, Mucous membr. moist/pink Neck: Supple, +2 carotid pulse wo bruit Cardiovascular: Regular rate, Normal S1, Normal S2 Lungs: Clear to auscultation Abdomen: Bowel sounds, Soft Extremities: no Edema Neurological: Sensation intact Skin: no Rash Psych/Mental Status: Mood NL Assessment/Plan - Assessment Assessment: Hyponatremia resolved Multiple falls 2/2 Parkinson, orthostatic hypotension, bradycardia, med induced Ess Htn Parkinson Ds Dyslipidemia - Plan Plan: Lab - Result Diagrams 01/01/18 05:45 01/01/18 05:45 Current Medications Acetaminophen/Hydrocodone Bitart ([place] 5mg/325mg) 1 tab PO Q6H PRN PRN Reason: mild to moderate pain Stop: 03/01/18 22:38 Last Admin: 01/01/18 22:26 Dose: 1 tab Alprazolam (Xanax) 0.25 mg PO Q12HR PRN; Protocol PRN Reason: Anxiety Stop: 03/01/18 20:59 Last Admin: 01/01/18 20:53 Dose: 0.25 mg Carbidopa/Levodopa (Sinemet 25mg-100 Mg) 1 tab PO QID [facility] Stop: 03/01/18 20:59 Last Admin: 01/02/18 14:20 Dose: 1 tab Carbidopa/Levodopa (Sinemet Cr 50mg-200mg) 1 ter PO BID@0730,1930 [facility] Stop: 03/02/18 19:29 Last Admin: 01/02/18 07:29 Dose: 1 ter Sodium Chloride (Nacl 0.9%) 1,000 mls @ 50 mls/hr IV .Q20H [facility] Stop: 03/01/18 16:14 Last Admin: 01/01/18 20:54 Dose: 50 mls/hr Tobramycin/Dexamethasone (Tobradex 0.1%-0.3% Ophth Susp 2.5ml) 2 drop EACH EYE BID [facility] Stop: 03/03/18 08:59 Last Admin: 01/02/18 09:21 Dose: 2 drop Lab - Result Diagrams 01/01/18 05:45 01/01/18 05:45 Na stable BP & HR better continue PT Cervical Spine CT: DJD MRI: extradural densities/indentations w/ deg spur formation placement in progress Nutritional Asmnt/Malnutr-PDOC - Dietary Evaluation Malnutrition Findings (Please click <Entered> for more info): Nutritional Asmnt/Malnutrition Start: 01/05/18 16: 37 Text: Status: Complete Freq: Document 01/05/18 16:37 NILDA (Rec: 01/05/18 16:59 [facility]) Nutritional Asmnt/Malnutrition Patient General Information Nutritional Screening Moderate Risk Diagnosis near syncope, frequent falls Pertinent Medical Hx/Surgical Hx HTN, hyperlipidemia, dementia, parkinson Subjective Information Pt seen lying in bed at time of visit. Pt reported good appetite, he is doing good. Pt does not eat pork. Per EMR, PO intake 75-100%. Current Diet Order/ Nutrition Support regular Pertinent Medications nacl 0.9% Pertinent Labs 01/01 nutrition labs WNL Nutritional Hx/Data Height 1.78 m Height (Calculated Centimeters) 177.8 Current Weight (lbs) 63.049 kg Weight (Calculated Kilograms) 63.0 Weight (Calculated Grams) 72499.3 [place] Body Weight 166 % [place] Body Weight 84 Body Mass Index (BMI) 19.9 Weight Status Approriate GI Symptoms GI Symptoms None Last BM 01/04 Difficult in: None Skin Integrity/Comment: discoloration to buttocks, left and right foot Current %PO Good (75-100%) Estimated Nutritional Goals BEE in Kcals: Using Current wt Calories/Kcals/Kg 25-30 Kcals Calculated 9347-5418 Protein: Using Current wt Protein g/k Protein Calculated 63 Fluid: ml 1575-1890ml (1ml/kcal) Nutritional Problem No current Nutrition Prob Problem N/A Malnutrition Alert Is there a minimum of two criteria No selected? Query Text:Check all the applicable criteria. A minimum of two criteria are recommended for diagnosis of either severe or non-severe malnutrition. Malnutrition Related to Morbid Obesity Malnutrition related to morbid obesity No Intervention/Recommendation Comments 1. Continue with regular diet as ordered. Diet preference updated. 2. Monitor PO intake, wt, labs and skin integrity 3. F/U as low risk in 7 days, 01/12 Expected Outcomes/Goals Expected Outcomes/Goals 1. PO intake to meet at least 75% of nutritional needs. 2. Wt stability, skin to remain intact, labs to approach WNL.
--- NOTE | 2018-01-06 12:27 | General Progress Note ---
Subjective - Review of Systems Events since last encounter: still ataxia but better Objective - Results Result Diagrams: 01/01/18 05:45 01/01/18 05:45 Recent Labs: Laboratory Last Values WBC 4.9 Th/cmm (4.8-10.8) 01/01/18 05:45 RBC 4.79 Mil/cmm (3.80-5.80) 01/01/18 05:45 Hgb 14.3 gm/dL (12-16) 01/01/18 05:45 Hct 41.6 % (41.0-60) 01/01/18 05:45 MCV 86.9 fl (80-99) 01/01/18 05:45 MCH 29.9 pg (27.0-31.0) 01/01/18 05:45 MCHC Differential 34.4 pg (28.0-36.0) 01/01/18 05:45 RDW 12.7 % (11.5-20.0) 01/01/18 05:45 Plt Count 190 Th/cmm (150-400) 01/01/18 05:45 MPV 8.7 fl 01/01/18 05:45 Neutrophils % 65.3 % (40.0-80.0) 01/01/18 05:45 Lymphocytes % 21.4 % (20.0-50.0) 01/01/18 05:45 Monocytes % 11.7 % (2.0-10.0) H 01/01/18 05:45 Eosinophils % 1.5 % (0.0-5.0) 01/01/18 05:45 Basophils % 0.1 % (0.0-2.0) 01/01/18 05:45 ESR 20 mm/hr (0-20) 01/01/18 05:45 PT 10.4 SECONDS (9.5-11.5) 12/31/17 11:22 INR 1.00 (0.5-1.4) 12/31/17 11:22 Sodium 136 mEq/L (136-145) 01/01/18 05:45 Potassium 4.3 mEq/L (3.5-5.1) 01/01/18 05:45 Chloride 104 mEq/L (98-107) 01/01/18 05:45 Carbon Dioxide 27.0 mEq/L (21.0-31.0) 01/01/18 05:45 Anion Gap 9.3 (7.0-16.0) 01/01/18 05:45 BUN 16 mg/dL (7-25) 01/01/18 05:45 Creatinine 0.9 mg/dL (0.7-1.3) 01/01/18 05:45 Est GFR ( Amer) > 60.0 ml/min (>90) 01/01/18 05:45 Est GFR (Non-Af Amer) > 60.0 ml/min 01/01/18 05:45 BUN/Creatinine Ratio 17.8 01/01/18 05:45 Glucose 104 mg/dL (70-105) 01/01/18 05:45 Uric Acid 3.0 mg/dL (4.4-7.6) L 01/02/18 08:08 Calcium 9.6 mg/dL (8.6-10.3) 01/01/18 05:45 Total Bilirubin 0.4 mg/dL (0.3-1.0) 12/31/17 11:22 AST 15 U/L (13-39) 12/31/17 11:22 ALT 4 U/L (7-52) L 12/31/17 11:22 Alkaline Phosphatase 54 U/L (34-104) 12/31/17 11:22 Creatine Kinase 118 U/L (30-223) 12/31/17 11:22 Troponin I < 0.01 ng/mL (0.01-0.05) L 12/31/17 11:22 C-Reactive Protein < 0.2 mg/dL (0.0-0.9) 01/01/18 05:45 B-Natriuretic Peptide 80.6 pg/mL (5.0-100.0) 12/31/17 11:22 Total Protein 7.5 gm/dL (6.0-8.3) 12/31/17 11:22 Albumin 4.1 gm/dL (4.2-5.5) L 12/31/17 11:22 Globulin 3.4 gm/dL 12/31/17 11:22 Albumin/Globulin Ratio 1.2 (1.0-1.8) 12/31/17 11:22 Triglycerides 68 mg/dL (<150) 12/31/17 11:22 Cholesterol 102 mg/dL (<200) 12/31/17 11:22 LDL Cholesterol Direct 59 mg/dL (75-193) L 12/31/17 11:22 HDL Cholesterol 35 mg/dL (23-92) 12/31/17 11:22 Aldolase 2.4 01/01/18 05:45 Free T4 1.10 01/01/18 05:45 TSH 3.23 uIU/ml (0.34-5.60) 01/01/18 05:45 Urine Source [place] 01/02/18 14:15 Urine Color YELLOW 01/02/18 14:15 Urine Clarity CLEAR (CLEAR) 01/02/18 14:15 Urine pH 6.0 (4.6 - 8.0) 01/02/18 14:15 Ur Specific [place] 1.025 (1.005-1.030) 01/02/18 14:15 Urine Protein NEGATIVE mg/dL (NEGATIVE) 01/02/18 14:15 Urine Glucose (UA) NEGATIVE mg/dL (NEGATIVE) 01/02/18 14:15 Urine Ketones NEGATIVE mg/dL (NEGATIVE) 01/02/18 14:15 Urine Blood NEGATIVE (NEGATIVE) 01/02/18 14:15 Urine Nitrate NEGATIVE (NEGATIVE) 01/02/18 14:15 Urine Bilirubin NEGATIVE (NEGATIVE) 01/02/18 14:15 Urine Urobilinogen 0.2 E.U./dL (0.2 - 1.0) 01/02/18 14:15 Ur Leukocyte Esterase NEGATIVE (NEGATIVE) 01/02/18 14:15 Ur Random Sodium 176 mmol/L 01/02/18 14:15 - Physical Exam Vitals and I&O: Vital Signs Temp 97.8 F 01/06/18 08:25 Pulse 65 01/06/18 08:25 Resp 19 01/06/18 11:21 BP 128/69 01/06/18 08:25 Pulse Ox 100 01/06/18 08:25 Intake & Output 01/05/18 01/06/18 01/06/18 18:59 06:59 18:59 Intake Total 1400 Balance 1400 Weight (lbs) 62.913 kg Intake: Oral 1400 Other: # Voids 2 # Bowel Movements 0 Weight Source Bedscale Active Medications: Current Medications Acetaminophen/Hydrocodone Bitart ([place] 5mg/325mg) 1 tab PO Q6H PRN PRN Reason: mild to moderate pain Stop: 03/01/18 22:38 Last Admin: 01/05/18 13:32 Dose: 1 tab Alprazolam (Xanax) 0.25 mg PO Q6HR PRN; Protocol PRN Reason: Anxiety Stop: 03/05/18 17:31 Last Admin: 01/06/18 10:50 Dose: 0.25 mg Baclofen (Lioresal) 10 mg PO BID [facility] Stop: 03/06/18 08:59 Last Admin: 01/06/18 09:25 Dose: 10 mg Carbidopa/Levodopa (Sinemet 25mg-100 Mg) 1 tab PO QID [facility] Stop: 03/01/18 20:59 Last Admin: 01/06/18 12:27 Dose: 1 tab Carbidopa/Levodopa (Sinemet Cr 50mg-200mg) 1 ter PO BID@0730,1930 [facility] Stop: 03/02/18 19:29 Last Admin: 01/06/18 09:35 Dose: Not Given Sodium Chloride (Nacl 0.9%) 1,000 mls @ 50 mls/hr IV .Q20H [facility] Stop: 03/01/18 16:14 Last Admin: 01/04/18 21:51 Dose: 50 mls/hr Tobramycin/Dexamethasone (Tobradex 0.1%-0.3% Ophth Susp 2.5ml) 2 drop EACH EYE BID [facility] Stop: 03/03/18 08:59 Last Admin: 01/06/18 09:24 Dose: 2 drop General: Alert, No acute distress HEENT: Atraumatic, PERRLA, EOMI, Mucous membr. moist/pink Neck: Supple, +2 carotid pulse wo bruit Cardiovascular: Regular rate, Normal S1, Normal S2 Lungs: Clear to auscultation Abdomen: Bowel sounds, Soft Extremities: no Edema Neurological: Sensation intact Skin: no Rash Psych/Mental Status: Mood NL Nutritional Asmnt/Malnutr-PDOC - Dietary Evaluation Malnutrition Findings (Please click <Entered> for more info): Nutritional Asmnt/Malnutrition Start: 01/05/18 16: 37 Text: Status: Complete Freq: Document 01/05/18 16:37 ALEKSANDRA (Rec: 01/05/18 16:59 [facility] Nutritional Asmnt/Malnutrition Patient General Information Nutritional Screening Moderate Risk Diagnosis near syncope, frequent falls Pertinent Medical Hx/Surgical Hx HTN, hyperlipidemia, dementia, parkinson Subjective Information Pt seen lying in bed at time of visit. Pt reported good appetite, he is doing good. Pt does not eat pork. Per EMR, PO intake 75-100%. Current Diet Order/ Nutrition Support regular Pertinent Medications nacl 0.9% Pertinent Labs 01/01 nutrition labs WNL Nutritional Hx/Data Height 1.78 m Height (Calculated Centimeters) 177.8 Current Weight (lbs) 63.049 kg Weight (Calculated Kilograms) 63.0 Weight (Calculated Grams) 29763.3 [place] Body Weight 166 % [place] Body Weight 84 Body Mass Index (BMI) 19.9 Weight Status Approriate GI Symptoms GI Symptoms None Last BM 01/04 Difficult in: None Skin Integrity/Comment: discoloration to buttocks, left and right foot Current %PO Good (75-100%) Estimated Nutritional Goals BEE in Kcals: Using Current wt Calories/Kcals/Kg 25-30 Kcals Calculated 1821-3646 Protein: Using Current wt Protein g/k Protein Calculated 63 Fluid: ml 1575-1890ml (1ml/kcal) Nutritional Problem No current Nutrition Prob Problem N/A Malnutrition Alert Is there a minimum of two criteria No selected? Query Text:Check all the applicable criteria. A minimum of two criteria are recommended for diagnosis of either severe or non-severe malnutrition. Malnutrition Related to Morbid Obesity Malnutrition related to morbid obesity No Intervention/Recommendation Comments 1. Continue with regular diet as ordered. Diet preference updated. 2. Monitor PO intake, wt, labs and skin integrity 3. F/U as low risk in 7 days, 01/12 Expected Outcomes/Goals Expected Outcomes/Goals 1. PO intake to meet at least 75% of nutritional needs. 2. Wt stability, skin to remain intact, labs to approach WNL.
[2018-01-06 14:14] LABS: ALDOLASE 2.4 U/L (3.3-10.3); FOLIC ACID 10.2 ng/mL (>3.0)
[2018-01-06] MEDS: Hydrocodone/APAP 5mg/325mg Tab PO PRN (14:17)
--- NOTE | 2018-01-10 06:42 | Discharge Summary ---
DATE OF DISCHARGE: 01/06/2018 The patient was admitted to [facility] on 12/31/2017 and on 01/06/2018 was discharged. The patient is a male patient who came because of history of recurrent falls, history of recurrent syncopal episode. The patient's initial diagnoses was hyponatremia, syncopal episode, rule out cardiac arrhythmia and transient ischemic episode. The patient also has early Parkinson disease. The patient has had a complete cardiac workup and neurological workup; was all negative. The patient was in stable condition and was sent ____. Condition at the time of discharge is stable. JOB# [id number]
== END 2018-01-06 18:25 | DRG 641 ==
LOC: ER 10:57 → TELE 15:15
PROVIDERS: ADMIT Internal Medicine; ATTEND Internal Medicine
DX: E87.1 Hypo-osmolality and hyponatremia (principal); I95.1 Orthostatic hypotension; G20 Parkinson's disease; F02.80 Dementia in other diseases classified elsewhere, unspecified severity, without behavioral disturbance, psychotic disturbance, mood disturbance, and anxiety; I10 Essential (primary) hypertension; E78.5 Hyperlipidemia, unspecified; T50.995A Adverse effect of other drugs, medicaments and biological substances, initial encounter; R29.6 Repeated falls; R27.0 Ataxia, unspecified; I65.23 Occlusion and stenosis of bilateral carotid arteries; I49.8 Other specified cardiac arrhythmias; M62.838 Other muscle spasm; Z82.49 Family history of ischemic heart disease and other diseases of the circulatory system; Z71.89 Other specified counseling; Z79.899 Other long term (current) drug therapy; Y92.89 Other specified places as the place of occurrence of the external cause
CPT/HCPCS: 36415-UA; 70450-TC; 71045-TC; 72125-TC; 72141-TC; 80048-TC; 80053-TC; 80061-TC; 81003-TC; 82085-90; 82550-TC; 82607-90; 82746-90; 83880-TC; 83930-90; 84300-TC; 84425-90; 84439-90; 84443-TC; 84484-TC; 84550-TC; 85025-TC; 85610-TC; 85652-TC; 86141-TC; 93005; 93880-TC; 94760; 97530; J7030; J7042; X3904; Z7610